=== PATIENT | female | born 1940 | race Caucasian/White ===

== ENCOUNTER 2019-01-01 10:56 | Emergency (ER) | payer MEDICARE, SELFPAY ==
[2019-01-01 10:59] VITALS: BP 181/92; PULSE 108; RESP 18; TEMP 37.2; O2SAT 98
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
== END 2019-01-01 12:14 | disposition home or self-care (01) ==
PROVIDERS: Emergency Provider Physician Assistant; PCP Internal Medicine
DX: S41.112A Laceration without foreign body of left upper arm, initial encounter (principal); S51.812A Laceration without foreign body of left forearm, initial encounter; S61.512A Laceration without foreign body of left wrist, initial encounter; Y04.2XXA Assault by strike against or bumped into by another person, initial encounter; Z63.6 Dependent relative needing care at home
CPT/HCPCS: 90471; 99284; 99283

== ENCOUNTER 2019-10-02 20:45 | Outpatient (REF) | payer MEDICARE, SELFPAY ==
[2019-10-02 20:13] LABS: HCT 42.7 % (36.0-46.0); HGB 14.7 g/dL (12.0-15.5); Mean Corp. HGB Concentration 34.4 g/dL (32.0-36.0); Mean Corpuscular Volume 90.1 fL (80-95); Mean Platelet Volume 10.7 fL (8.0-11.0); Platelet Count 229 x1000/uL (130-400); RBC 4.74 m/cumm (4.00-5.20); RBC Distribution Width 13.9 % (11.7-14.6); White Blood Cell Count 4.26 k/cumm (4.4-10.8)
[2019-10-02 20:29] LABS: Anion Gap 11.3 mmol/L (3-11); BUN 18 mg/dL (7-18); CO2 26.7 mmol/L (21.0-32.0); Calcium 9.3 mg/dL (8.5-10.1); Chloride 104 mmol/L (98-107); Glucose 93 mg/dL (74-106); Potassium 3.8 mmol/L (3.5-5.1); Sodium 142 mmol/L (136-145); TSH (W/Ref FT4) 0.64 uIU/mL (0.36-3.74)
== END 2019-10-02 21:05 ==
LOC: NCHCN 20:45
PROVIDERS: PCP Internal Medicine; Visit Provider Internal Medicine
DX: I10 Essential (primary) hypertension (principal); R00.0 Tachycardia, unspecified; H53.9 Unspecified visual disturbance
CPT/HCPCS: 80048; 85027; 84443

== ENCOUNTER 2019-11-26 07:10 | Emergency (ER) | payer MEDICARE, SELFPAY ==
[2019-11-26 07:15] VITALS: BP 158/81; PULSE 101; RESP 16; TEMP 37; O2SAT 97
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
--- NOTE | 2019-11-26 07:30 | DI.RAD_ITS ---
EXAM: XR FOOT RT COMPLETE CLINICAL HISTORY: trauma. TECHNIQUE: 2D digital imaging was performed. COMPARISON: No exams were available for comparison FINDINGS: BONES: No acute fracture is present. No bony destructive lesion is seen. JOINTS: No dislocation present. There is a hammertoe deformity of the 2nd toe which overlaps the 1st toe. There are mild degenerative changes. A small ossicle is seen adjacent to the medial aspect of the navicular. SOFT TISSUE: Normal. IMPRESSION: No acute abnormality. DATA REPOSITORY: RADIATION DOSE DELIVERED:
--- NOTE | 2019-11-26 07:30 | DI.RAD_ITS ---
EXAM: XR KNEE LT 3V AP,LAT,ANITA CLINICAL HISTORY: trauma. TECHNIQUE: 2D digital imaging was performed. COMPARISON: No exams were available for comparison FINDINGS: BONES: No acute fracture is present. No bony destructive lesion is seen. Bones appear osteopenic. JOINTS: The knee is normally aligned. No joint effusion is seen. The femoral tibial joint spaces are well maintained. There is narrowing of the patellofemoral joint and mild periarticular spurring. An ossicle is seen adjacent to the tibial tubercle. SOFT TISSUE: Normal. IMPRESSION: Mild degenerative changes greatest of the patellofemoral joint. No acute abnormality. DATA REPOSITORY: RADIATION DOSE DELIVERED:
--- NOTE | 2019-11-26 08:07 | DI.VRAD_ITS ---
PROCEDURE INFORMATION: Exam: XR Right Ankle Exam date and time: 11/26/2019 7:45 AM Age: 79 years old Clinical indication: Pain; Ankle and foot; Right TECHNIQUE: Imaging protocol: XR Right ankle. Views: 3 or more views. COMPARISON: No relevant prior studies available. FINDINGS: Bones/joints: medial and lateral malleoli are normal. ankle mortise is symmetrical. No fracture. hind foot is unremarkable. Tibiotalar joint and the subtalar joint appears normal. Small ossific density of approximately 8 mm by 2 mm dorsal aspect of the neck of the talus. Small avulsion injury within the differential diagnosis. Correlate regarding tenderness. Soft tissues: Moderate soft tissue swelling laterally. Moderate soft tissue swelling adjacent to the lateral malleolus. IMPRESSION: 1. No ankle fracture 2. Moderate soft tissue swelling adjacent to the lateral malleolus. 3. Small ossific density of approximately 8 mm by 2 mm dorsal aspect of the neck of the talus. Small avulsion injury within the differential diagnosis. Correlate regarding tenderness. Dictated and Authenticated by: Martín Robles MD. Ordering:SAJAN Giles MD
--- NOTE | 2019-11-26 08:09 | DI.VRAD_ITS ---
PROCEDURE INFORMATION: Exam: XR Right Foot Complete Exam date and time: 11/26/2019 7:47 AM Age: 79 years old Clinical indication: Injury or trauma; Fall; Initial encounter; Abrasion; Foot; Left; Injury date: 11/25/19 TECHNIQUE: Imaging protocol: XR Right foot. Views: 3 or more views. COMPARISON: No relevant prior studies available. FINDINGS: Bones/joints: Mild degenerative changes at the first metatarsal phalangeal joint. Mild medial subluxation of the proximal phalanx of the 2nd ray in relation to the metatarsal. Soft tissues: Normal. IMPRESSION: Mild medial subluxation of the proximal phalanx of the 2nd ray in relation to the metatarsal. Dictated and Authenticated by: Martín Robles MD. Ordering:SAJAN Giles MD
--- NOTE | 2019-11-26 08:10 | DI.VRAD_ITS ---
PROCEDURE INFORMATION: Exam: XR Left Knee Exam date and time: 11/26/2019 7:31 AM Age: 79 years old Clinical indication: Injury or trauma; Fall; Initial encounter; Abrasion; Knee; Left TECHNIQUE: Imaging protocol: XR Left knee. Views: 3 views. COMPARISON: No relevant prior studies available. FINDINGS: Bones/joints: Mild tricompartmental degenerative changes within the medial compartment, lateral compartment, and patellofemoral joint. No fracture. Tiny suprapatellar joint effusion. Soft tissues: Normal. IMPRESSION: 1. Mild tricompartmental degenerative joint disease. 2. Tiny suprapatellar joint effusion. Dictated and Authenticated by: Martín Robles MD. Ordering:SAJAN Giles MD
--- NOTE | 2019-11-26 09:37 | PT.INIE ---
Date of service: 11/26/19 Time of Service: 08:55 PT Notes Physical Therapy Inpatient Initial Evaluation Date: 11/26/2019 Referring Doctor: Chan Dickson MD PT Orders: PT CONSULT: Safety consult for DC Precautions: Fall. Standard. WBAT on BLE. Patient Profile/Admitting Diagnosis: Laura is a 79-year-old female who presented to the ED this morning with chief complaint of right ankle pain and left knee pain sustained from a fall while chasing a skunk of their garage. X-ray of the left knee showed a mild tricompartmental degenerative joint disease and a tiny suprapatellar joint effusion. X-ray of the right ankle and foot demonstrated mild medial subluxation of the proximal phalanx of the second ray in relation to the metatarsal, soft tissue swelling adjacent to the lateral met malleolus, and question of an avulsion injury of the talus. PMHX: Medical History HTN (hypertension) (Chronic) Surgical History No significant past surgical history (Acute) Social History/Home Situation: Patient lives with in a private home with 2 steps to enter without rails. is handicapped and lives with has been with 's caregiver for several months now. is independent with all aspects of ADLs without the need for an assistive ambulatory device nor adaptive equipment. She has not fallen in the past 12 months excluding this most recent accidental fall she had leading to this admission. Equipment Owned/DME: None Subjective: Patient reports pain on the left knee and of the right leg and foot of below 5/10. She is agreeable to a PT consult. She reports without having any flat foot wear on the left would give her more discomfort in her back because of the increased height from wearing the fracture boot on the right. She denies dizziness, lightheadedness, and chest pain throughout. Objective: General Observation: Patient lying down on ICU bed. Knee-high fracture boot on the right. Hinged knee brace on the left. Mental Status: Alert and oriented x4 Pain: 4/10 on the left knee and right foot ROM: Right Upper Extremity: Shoulder Flexion WFL. Shoulder abduction WFL. Elbow flexion WFL. Wrist flexion WFL. Opening and closing of hand WFL. Left Upper Extremity: Shoulder Flexion WFL. Shoulder abduction WFL. Elbow flexion WFL. Wrist flexion WFL. Opening and closing of hand WFL. Right Lower Extremity: Hip flexion WFL. Hip abduction WFL. Knee flexion WFL. Ankle dorsiflexion WFL. Ankle plantarflexion WFL. Left Lower Extremity: Hip flexion WFL. Hip abduction WFL. Knee flexion WFL. Ankle dorsiflexion WFL. Ankle plantarflexion WFL. Strength: Right Upper Extremity: Shoulder flexors 5/5. Shoulder abductors 5/5. Elbow flexors 5/5. Elbow extensors 5/5. [facility] Coord[facility] strong. Left Upper Extremity: Shoulder flexors 5/5. Shoulder abductors 5/5. Elbow flexors 5/5. Elbow extensors 5/5. Community Center Coordinator strong. Right Lower Extremity: Hip flexors 5/5. Hip abductors 5/5. Knee flexors 5/5. Knee extensors 5/5. Ankle dorsiflexors NT. Ankle plantarflexors NT. Left Lower Extremity:Hip flexors 5/5. Hip abductors 5/5. Knee flexors 5/5. Knee extensors 5/5. Ankle dorsiflexors 5/5. Ankle plantarflexors 5/5. Sensation: Intact as to pain and pressure on bilateral lower extremities. Bed Mobility/Transfers: Rolling independent Supine to sit independent Sit to supine independent Sit to stand supervision using BUE for support, minimal verbal cues provided for hand placement Stand to sit supervision using BUE for support, minimal verbal cues provided for hand placement Bed to chair supervision using BUE for support, minimal verbal cues provided for hand placement Chair to bed supervision using BUE for support, minimal verbal cues provided for hand placement Gait: Patient was able to tolerate 80 feet on level surface ambulation using the front wheeled walker with WBAT on BLE with out increase in pain complaint. Reciprocal swing through gait pattern observed. Leg length discrepancy seen because of increased height from use of fracture boot on the right. Balance: Static Sitting: Normal Dynamic Sitting: Normal Static Standing: Fair Dynamic Standing: Fair Special Tests: Mobility Limitations Standardized Measure [facility] 6 clicks Basic Mobility Inpatient Short Form: Raw Score: 22 CMS Score: 21% deficit Informed Consent/Education: Patient instructed in purpose of PT consult and plan of care. Assessment: Patient demonstrates need for an assistive ambulatory device to maximize independence with mobility ADL performance, discomfort in left knee and right ankle and foot, unsteadiness on feet, and impairment in balance resulting from admitting diagnoses. Laura is a 79-year-old female who presented to the ED this morning with chief complaint of right ankle pain and left knee pain sustained from a fall while chasing a skunk of their garage. X-ray of the left knee showed a mild tricompartmental degenerative joint disease and a tiny suprapatellar joint effusion. X-ray of the right ankle and foot demonstrated mild medial subluxation of the proximal phalanx of the second ray in relation to the metatarsal, soft tissue swelling adjacent to the lateral met malleolus, and question of an avulsion injury of the talus. Patient presents with clinical signs and symptoms consistent with current/admitting diagnoses that have resulted to mobility limitations, gait instability, generalized weakness, and impairment of motor control as demonstrated by the following impairment level findings: 1. Impaired standing balance 2. Impaired activity tolerance 3. Limitation of joint range of motion in right ankle due to pain Impairments are contributing to the following functional limitations: 3. Inability to safely ambulate without assistive device and physical assistance 4. Increase completion time for mobility ADL performance 5. Increased fall risk 6. Inability to negotiate steps alone safely Patient is assessed as a [id number] low complexity based on the following: History: 79-year-old female with impairment level findings, functional limitations, and past medical history as listed above Examination: Demonstrable impairment in strength, balance, and range of motion with underlying impairments and functional limitations as documented above Presentation: Stable Decision Makin low complexity Goals: N/A. PT consult only Plan of Care/Treatment Plan: N/A. PT consult only DISCHARGE RECOMMENDATIONS: Patient will benefit from the use of a front wheeled walker to maximize independence at home. To follow-up with orthopedic surgeon in 1 week per ED MD order. May benefit from outpatient physical therapy services as recommended by orthopedic surgeon after follow-up in order to regain prior level of independent mobility without an assistive device. TREATMENT CODE/TIME: 39111 x 25 minutes beginning at 8:55 AM. Thank you very much for this referral. Jyotsna Holley PT, DPT, CLT [facility] [place], [place]
== END 2019-11-26 09:50 | disposition home or self-care (01) ==
PROVIDERS: Emergency Provider Emergency Medicine; PCP Internal Medicine
DX: S99.821A Other specified injuries of right foot, initial encounter (principal); S99.811A Other specified injuries of right ankle, initial encounter; S89.82XA Other specified injuries of left lower leg, initial encounter; M25.462 Effusion, left knee; W10.8XXA Fall (on) (from) other stairs and steps, initial encounter; X50.9XXA Other and unspecified overexertion or strenuous movements or postures, initial encounter; I10 Essential (primary) hypertension
CPT/HCPCS: 29505; 29515; 73562; 97161; 99284; 73610; 73630; 99283; L1830; L4361

== ENCOUNTER → 2019-12-07 12:43 | Outpatient (BNVA) | payer MEDICARE, SELFPAY | PROVIDERS: PCP Internal Medicine; Referring Provider Emergency Medicine; Visit Provider Student in an Organized Health Care Education/Training Program | DX: M17.12 Unilateral primary osteoarthritis, left knee (principal); S99.911A Unspecified injury of right ankle, initial encounter; S89.92XA Unspecified injury of left lower leg, initial encounter; X50.9XXA Other and unspecified overexertion or strenuous movements or postures, initial encounter; I10 Essential (primary) hypertension | CPT/HCPCS: 99203; 99214 ==

== ENCOUNTER 2020-01-18 13:00 | Outpatient (CLI) | payer MEDICARE, SELFPAY ==
--- NOTE | 2020-01-18 12:00 | DI.US_ITS ---
EXAM: US LOWER EXTREMITY VENOUS RT CLINICAL HISTORY: Right leg swelling I82.401 ACUTE EMBOLISM AND THROMBOSIS TECHNIQUE: Right lower extremity venous ultrasound performed using grayscale, color-flow, and spectr al Doppler analysis. COMPARISON: No exams were available for comparison FINDINGS: The right common femoral, femoral and popliteal veins demonstrate normal compressibility, augmentatio n, and color Doppler. The posterior tibial veins are patent. The saphenofemoral junction is unremark able. There is no evidence of a Michelle cyst. The soft tissues are unremarkable. IMPRESSION: No DVT. DATA REPOSITORY:
== END 2020-01-18 13:20 ==
PROVIDERS: PCP Internal Medicine; Visit Provider Student in an Organized Health Care Education/Training Program
DX: R60.0 Localized edema (principal); I82.401 Acute embolism and thrombosis of unspecified deep veins of right lower extremity
CPT/HCPCS: 99213; 73610; 93971

== ENCOUNTER 2020-01-18 15:42 | Outpatient (CLI) | payer MEDICARE, SELFPAY ==
--- NOTE | 2020-01-18 11:30 | DI.RAD_ITS ---
EXAM: XR ANKLE RT COMPLETE CLINICAL HISTORY: right ankle pain. TECHNIQUE: 2D digital imaging was performed. COMPARISON: CR,XR XR ANKLE RT COMPLETE from 11/26/2019 FINDINGS: BONES: No acute fracture or dislocation is identified. The bones are mildly osteopenic. JOINTS: The ankle mortise is normally aligned. SOFT TISSUE: There is generalized soft tissue swelling of the hindfoot and ankle. No radiopaque fore ign body is identified. IMPRESSION: Soft tissue swelling about the right ankle. If there is concern for internal derangement, an MRI clemente uld be considered for further evaluation. DATA REPOSITORY: RADIATION DOSE DELIVERED:
== END 2020-01-18 16:02 ==
PROVIDERS: PCP Internal Medicine; Referring Provider Internal Medicine; Visit Provider Student in an Organized Health Care Education/Training Program
DX: M25.571 Pain in right ankle and joints of right foot (principal); R60.0 Localized edema; I10 Essential (primary) hypertension
CPT/HCPCS: 99213; 73610

== ENCOUNTER 2020-02-02 08:01 | Outpatient (CLI) | payer MEDICARE, SELFPAY ==
[2020-02-03 20:17] LABS: SARS-CoV-2 RNA Undetected (Undetected); SARS-CoV-2 Specimen Source Nasopharynx
== END 2020-02-02 08:21 ==
PROVIDERS: PCP Internal Medicine; Visit Provider Internal Medicine
DX: Z11.59 Encounter for screening for other viral diseases (principal)
CPT/HCPCS: U0003

== ENCOUNTER 2020-04-08 14:49 | Emergency (ER) | payer MEDICARE, SELFPAY ==
[2020-04-08 15:09] VITALS: BP 160/88; PULSE 88; RESP 16; TEMP 37; O2SAT 98
--- NOTE | 2020-04-08 15:17 | ED.GENADUL_ITS ---
Discharge Plan Disposition Patient Disposition: HOME Condition: Fair Discharge Details Clinical Impression: Knee sprain Primary Care Provider: Adarsh Monet ED Provider: Evette Cameron Home Meds and New Rx's Prescriptions: Continued diltiazem HCl 240 mg Capsule,Extended Release 24 Hr 240 mg PO DAILY RF: 0 Discharge Instructions Instructions: Knee Sprain (ED) Additional Instructions: hardeep wrap for comfort. Ice to affected area 20 minutes at a time 4-5 times daily Use walker for toe touch weight bear only as tolerated. acetaminophen 1000 mg 3 times daily for 5 days, then as needed for pain can add ibuprofen 600 mg with food 4 times daily for breakthrough pain. Referrals: ORTHOPAEDICS,[facility] [OTHER] - (one week if not improving) Discharge Data Discharge Date/Time-TO BE ENTERED AT DEPARTURE: 04/08/20 17:20 Medical Decision Making <ELBERT Martinez - Last Filed: 04/13/20 09:18> Patient is a pleasant 79 year old female presenting today with c/c of right knee pain after she slipped on her deck this AM and fell with the knee flexed under her. States that pain is maximal anteriorly. Has had to hop or use a walker for ambulation. Denies other injury at the time of the incident. She did not strike her head. Denies neck, back, abdominal pain. Pain does not radiate. No previous surgery or injury to the knee that she is aware of. On exam, she has a notable effusion which is limiting exam. ROM is reduced, particularly flexion. She has full extension. She has 2+ distal pulses, sensation is intact. No obvious deformity. I do not note laxity with varus/valgus stress testing. She is able to flex at ankle. Pain is over patella and laterally along joint line. Patient is elevating, icing. Will give ibuprofen, she has been taking tylenol. Plan for XR for evaluation of potential fracture. At the end of my shift, care transitioned to Evette Cameron with imaging pending. Also have asked her to reexamine once pain is more controlled to see if it is not as limited. <Evette Cameron NP - Last Filed: 04/08/20 17:28> X-ray of right knee shows large joint effusion without evident fracture multi- level knee degenerative changes. Right knee shows no obvious deformity. She does have effusion noted. Most pain is lateral aspect of the knee. No overt instability noted but exam is limited secondary to effusion and pain. We will be wrapped with Hardeep wrap she will be advised no weightbearing toe-touch as tolerated only for stability with her walker and follow-up with orthopedics in 1 week if symptoms not improving HPI <ELBERT Martinez - Last Filed: 04/13/20 09:18> General Mode of arrival: wheelchair . Date/Time Provider Initiated Documentation: 04/08/20 15:16 . Limitations to Documentation: no limitations . Information obtained by: patient, family and RN notes reviewed . History of Present Illness 79 year old F presents to the emergency department with the chief complaint of right knee pain, described as moderate, with intensity rated at 7. Quality is described as aching, and is localized to the pelvis, right and upper extremity. Patient reports no radiation. Patient started experiencing this hour(s) and it has been constant. Immobilization improves symptom(s), Movement worsens symptoms . Patient notes no other symptoms.. Patient did receive the following treatments prior to arrival, none Related Data Home Medications Medication Instructions Recorded Confirmed diltiazem HCl 240 mg PO DAILY 11/26/19 04/08/20 Allergies Allergy/AdvReac Type Severity Reaction Status Date / Time No Known Allergies Allergy Unverified 04/08/20 15:17 General Stated Complaint: Orthopedic CONCHA: 3 Review of Systems <ELBERT Martinez - Last Filed: 04/13/20 09:18> Constitutional Constitutional: Reports as per HPI, Denies chills, Denies fever(s), Denies headache(s) and Denies weakness ENT Ears, Nose, Mouth, and Throat: Denies headache(s) Cardiovascular Cardiovascular: Reports as per HPI Respiratory Respiratory: Reports as per HPI and Denies cough Musculoskeletal Musculoskeletal: Reports as per HPI and Denies tingling Integumentary/Breasts Skin/Breast: Reports as per HPI, Denies rash and Denies wounds Neurologic Neurologic: Reports as per HPI, Denies headache(s), Denies tingling, Denies paresthesias and Denies weakness PFS <ELBERT Martinez - Last Filed: 04/13/20 09:18> Medical History HTN (hypertension) Left knee DJD Surgical History No significant past surgical history Social History Smoking/Tobacco Use Status: Never Alcohol Intake: current Alcohol Intake frequency: 0-2 drinks per day Drug use: Never Substance use type: does not use Current gender identity: female Do you feel safe at home: Yes Do you feel safe in your relationship?: Yes Additional Social history: with dementia Exam <ELBERT Martinez - Last Filed: 04/13/20 09:18> Const General: cooperative, healthy appearing, comfortable, no acute distress, well developed and well groomed Nutritional Appearance: average body habitus and well nourished Orientation: alert and awake Resp Effort & Inspection: normal respiratory effort, able to speak in complete sentences and no respiratory distress Cardio Rate: regular rate Rhythm: regular rhythm Skin General skin exam: no rashes or lesions noted Lesions: no lesions Rashes: no rashes Trauma: no lacerations or abrasions Neuro General: patient alert and patient awake Cognition: normal cognition Speech: speech normal Gait: normal gait Motor: muscle tone normal throughout Sensory Exam: no sensory deficits noted Extrem Right lower extremity: normal capillary refill, hip/thigh Details: normal to inspection; no tenderness, knee Details: abnormal to inspection (moderate effusion, pain over the anterior patella) Details: other (tight, tender IT band); not erythematous and without a suprapatellar bulge, tenderness Location: of the patella Details: inferiorly, swelling and knee ligament exam normal; ROM abnormal (full extension, flexion to 30*), normal knee ligament exam, no ecchymosis and no crepitus and lower leg Details: normal to inspection; abnormal to inspection (moderate knee effusion, pain with ROM) Psych Appearance: grossly normal and well kempt Mental Status: mental status grossly normal Speech and Movement: speech and movement normal Course <ELBERT Martinez - Last Filed: 04/13/20 09:18> Vital Signs Vital signs: Vital Signs Temperature 37.0 C 04/08/20 15:09 Pulse 88 04/08/20 15:09 Respiratory Rate 16 04/08/20 15:09 Blood Pressure 160/88 H 04/08/20 15:09 Pulse Oximetry 98 04/08/20 15:09 Temperature 37.0 C 10/09/20 15:09 Temperature Source Temporal Artery Scan 04/08/20 15:09 Pulse 88 04/08/20 15:09 Respiratory Rate 16 04/08/20 15:09 Blood Pressure 160/88 H 04/08/20 15:09 Blood Pressure Position Sitting 04/08/20 15:09 Pulse Oximetry 98 04/08/20 15:09 Oxygen Delivery Method Room Air 04/08/20 15:09 Oxygen Flow Rate 0 04/08/20 15:09 Pain Level 7 04/08/20 15:09 Sign Out <ELBERT Martinez - Last Filed: 04/13/20 09:18> Sign Out Data: Sign Out Comment: Care transitioned to Evette Cameron NP with imaging and reexamination pending. Last updated by Annette Fuchs PA at 04/08/20 16:05
--- NOTE | 2020-04-08 15:45 | DI.RAD_ITS ---
EXAM: XR KNEE RT 4V AP,LAT,ANITA,PAT CLINICAL HISTORY: fall on right knee this AM, flexion injury. TECHNIQUE: 2D digital imaging was performed. COMPARISON: CR,XR XR KNEE LT 3V AP,LAT,ANITA from 11/26/2019 FINDINGS: BONES: There is a depressed lateral tibial plateau fracture. There is 2-3 mm of depression noted. N o bony destructive lesion is seen. JOINTS: The knee is normally aligned. There is a joint effusion present. Degenerative changes are se en in the knee with joint space narrowing and periarticular spurring present. Chondrocalcinosis is p resent. SOFT TISSUE: Normal. IMPRESSION: There is a mildly depressed lateral tibial plateau fracture. Findings were discussed with the emerge ncy department on 04/09/2020. DATA REPOSITORY: RADIATION DOSE DELIVERED:
[2020-04-08] MEDS: Ibuprofen 600 MG TAB PO (15:58)
--- NOTE | 2020-04-09 08:20 | W.ED.FU ---
Date of service: 04/09/20 Time of Service: 08:20 Follow Up Plan: Call made to patient spoke with her she reports that she has been icing her knee which is feeling better since yesterday. Discussed x-ray results of a probable tibial plateau fracture with her she verbalizes understanding. Discussed the importance of follow-up with orthopedics she reports she will call first thing Saturday.
--- NOTE | 2020-04-14 16:03 | DI.VRAD_ITS ---
PROCEDURE INFORMATION: Exam: XR Left Knee Exam date and time: 04/08/2020 4:19 PM Age: 79 years old Clinical indication: Other: Fall on RT knee this am, flexion injury TECHNIQUE: Imaging protocol: XR Left knee. Views: 4 or more views. COMPARISON: CR XR KNEE LT 3V AP,LAT,ANITA 11/26/2019 7:50 AM FINDINGS: Bones/joints: Large knee joint effusion. No fluid level or joint body. Lateral patella subluxation and prominent lateral patellofemoral degenerative spurring. Mediolateral femorotibial spurring, greater medially. No acute fracture. Soft tissues: Normal. IMPRESSION: 1. New large knee joint effusion without evident fracture. 2. Multilevel knee degenerative change. Dictated and Authenticated by: Martín Rios MD. Ordering:BRITTNI Bryant MD
== END 2020-04-08 17:20 | disposition home or self-care (01) ==
PROVIDERS: Emergency Provider Nurse Practitioner Acute Care; PCP Internal Medicine
DX: M25.461 Effusion, right knee (principal); S83.91XA Sprain of unspecified site of right knee, initial encounter; W19.XXXA Unspecified fall, initial encounter; I10 Essential (primary) hypertension
CPT/HCPCS: 99284; 73564; 99281

== ENCOUNTER 2020-05-06 09:41 | Outpatient (CLI) | payer MEDICARE, SELFPAY ==
--- NOTE | 2020-05-06 09:15 | DI.RAD_ITS ---
EXAM: XR KNEE RT 3V AP,LAT,ANITA CLINICAL HISTORY: follow up. TECHNIQUE: 2D digital imaging was performed. COMPARISON: CR,XR XR KNEE RT 4V AP,LAT,ANITA,PAT from 04/08/2020 FINDINGS: BONES: There has been no change in alignment of the depressed lateral tibial plateau fracture. No ne w fracture is identified. No bony destructive lesion is seen. The bones are osteopenic. JOINTS: Stable degenerative changes are seen in the knee. Chondrocalcinosis is present. A small tyler nt effusion persists. SOFT TISSUE: Normal. IMPRESSION: Stable lateral tibial plateau fracture. DATA REPOSITORY: RADIATION DOSE DELIVERED:
--- NOTE | 2020-05-06 09:30 | DI.RAD_ITS ---
EXAM: XR ANKLE RT COMPLETE CLINICAL HISTORY: fall. TECHNIQUE: 2D digital imaging was performed. COMPARISON: CR XR ANKLE RT COMPLETE from 01/18/2020 FINDINGS: BONES: No acute fracture is present. No bony destructive lesion is seen. The bones are osteopenic. JOINTS: The ankle mortise is normally aligned. SOFT TISSUE: Normal. IMPRESSION: No acute fracture or dislocation. DATA REPOSITORY: RADIATION DOSE DELIVERED:
== END 2020-05-06 10:01 ==
PROVIDERS: PCP Internal Medicine; Referring Provider Internal Medicine; Visit Provider Student in an Organized Health Care Education/Training Program
DX: S82.141A Displaced bicondylar fracture of right tibia, initial encounter for closed fracture (principal); M25.571 Pain in right ankle and joints of right foot; S93.401A Sprain of unspecified ligament of right ankle, initial encounter; W00.0XXA Fall on same level due to ice and snow, initial encounter; I10 Essential (primary) hypertension
CPT/HCPCS: 73562; 99213; 73610

== ENCOUNTER 2020-05-11 22:17 | Outpatient (REF) | payer MEDICARE, SELFPAY ==
[2020-05-11 22:22] LABS: Calculated LDL 117 mg/dL (<100); Cholesterol 251 mg/dL (<200); HDL Cholesterol 124 mg/dL (40-60); Triglyceride 50 mg/dL (<150)
== END 2020-05-11 22:37 ==
LOC: NCHCN 22:17
PROVIDERS: PCP Internal Medicine; Visit Provider Internal Medicine
DX: E78.5 Hyperlipidemia, unspecified (principal)
CPT/HCPCS: 80061

== ENCOUNTER 2020-06-03 11:43 | Outpatient (CLI) | payer MEDICARE, SELFPAY ==
--- NOTE | 2020-06-03 10:45 | DI.RAD_ITS ---
EXAM: XR KNEE RT 2V AP,LAT CLINICAL HISTORY: f/u fracture. TECHNIQUE: 2D digital imaging was performed. COMPARISON: CR XR KNEE RT 3V AP,LAT,ANITA from 05/06/2020 FINDINGS: The bones appear osteopenic. There has been continued healing at the lateral tibial plateau fracture . Fracture lines are no longer discretely seen. Severe narrowing of the patellofemoral joint is ag ain noted. No new abnormalities are seen. IMPRESSION: Continued healing of the lateral tibial plateau fracture. DATA REPOSITORY: RADIATION DOSE DELIVERED:
== END 2020-06-03 12:03 ==
PROVIDERS: PCP Internal Medicine; Referring Provider Internal Medicine; Visit Provider Student in an Organized Health Care Education/Training Program
DX: S82.141A Displaced bicondylar fracture of right tibia, initial encounter for closed fracture (principal); S93.401A Sprain of unspecified ligament of right ankle, initial encounter; W00.0XXA Fall on same level due to ice and snow, initial encounter
CPT/HCPCS: 99213; 73560

== ENCOUNTER → 2020-10-25 08:08 | Outpatient (BNVA) | payer MEDICARE, SELFPAY | PROVIDERS: PCP Internal Medicine; Referring Provider Internal Medicine; Visit Provider Psychiatry & Neurology Neurology | DX: M21.372 Foot drop, left foot (principal); Z87.81 Personal history of (healed) traumatic fracture | CPT/HCPCS: 95908; 99215 ==

== ENCOUNTER 2021-07-03 16:28 | Outpatient (REF) | payer MEDICARE, SELFPAY ==
[2021-07-05 14:20] LABS: COVID-19 RT-PCR UVMMC Result Negative (Negative)
== END 2021-07-03 16:29 | disposition home or self-care (01) ==
LOC: NCHCN 16:28
PROVIDERS: PCP Internal Medicine; Visit Provider Internal Medicine
DX: Z20.822 Contact with and (suspected) exposure to COVID-19 (principal)
CPT/HCPCS: U0003

== ENCOUNTER 2021-07-10 15:17 | Outpatient (REF) | payer MEDICARE, SELFPAY ==
[2021-07-11 16:57] LABS: COVID-19 RT-PCR UVMMC Result Negative (Negative)
== END 2021-07-10 15:18 | disposition home or self-care (01) ==
LOC: NCHCN 15:17
PROVIDERS: PCP Internal Medicine; Visit Provider Internal Medicine
DX: Z20.822 Contact with and (suspected) exposure to COVID-19 (principal)
CPT/HCPCS: U0003; U0005

== ENCOUNTER 2021-11-14 16:28 | Outpatient (REF) | payer MEDICARE, SELFPAY ==
[2021-11-14 16:54] LABS: Anion Gap 11.9 mmol/L (3-11); BUN 15 mg/dL (7-18); CO2 25.1 mmol/L (21.0-32.0); CREATININE 0.7 mg/dL (0.55-1.02); Calcium 9.2 mg/dL (8.5-10.1); Chloride 104 mmol/L (98-107); Glucose 125 mg/dL (74-106); Potassium 3.9 mmol/L (3.5-5.1); Sodium 141 mmol/L (136-145)
== END 2021-11-14 16:29 | disposition home or self-care (01) ==
LOC: NCHCN 16:28
PROVIDERS: PCP Internal Medicine; Visit Provider Internal Medicine
DX: I10 Essential (primary) hypertension (principal); R29.898 Other symptoms and signs involving the musculoskeletal system; F32.9 Major depressive disorder, single episode, unspecified; M21.372 Foot drop, left foot
CPT/HCPCS: 80048

== ENCOUNTER 2022-10-23 13:38 | Outpatient (REF) | payer MEDICARE, SELFPAY ==
[2022-10-23 15:11] LABS: Hemoglobin A1C 5.5 % (<5.7)
[2022-10-23 15:20] LABS: Anion Gap 11.7 mmol/L (3-11); BUN 10 mg/dL (7-18); CO2 27.3 mmol/L (21.0-32.0); CREATININE 0.6 mg/dL (0.55-1.02); Calcium 9.8 mg/dL (8.5-10.1); Chloride 101 mmol/L (98-107); Estimated GFR 90.12 (mL/min/1.73m2); Glucose 115 mg/dL (74-106); Potassium 4.2 mmol/L (3.5-5.1); Sodium 140 mmol/L (136-145)
== END 2022-10-23 13:39 | disposition home or self-care (01) ==
LOC: NCHCN 13:38
PROVIDERS: PCP Internal Medicine; Visit Provider Internal Medicine
DX: I10 Essential (primary) hypertension (principal); E78.5 Hyperlipidemia, unspecified; R29.898 Other symptoms and signs involving the musculoskeletal system; M21.372 Foot drop, left foot; R73.09 Other abnormal glucose
CPT/HCPCS: 80048; 83036

== ENCOUNTER 2023-01-04 00:43 | Outpatient (CLI) | payer MEDICARE, SELFPAY ==
--- NOTE | 2023-01-04 | DI.MRI_ITS ---
Exam(s) MR CERVICAL SPINE WO EXAM: MR CERVICAL SPINE WO CLINICAL HISTORY: RT HAND WEAKNESS R29.898 AND FOOT DROP, C SPINE STENOSIS TECHNIQUE: Multiplanar multisequence MRI of the cervical spine was performed without intravenous con trast. COMPARISON: No exams were available for comparison FINDINGS: BONES: Vertebral body heights are maintained. Alignment is normal. Bone marrow signal intensity is wi thin normal limits. CERVICAL CORD: Craniovertebral junction is unremarkable. The cervical cord is normal size and signal intensity. SOFT TISSUES: Unremarkable. C2-3: No disc herniation or bulge is identified. No evidence of neural foraminal narrowing. No signi ficant central canal stenosis C3-4: No disc herniation or bulge is identified. Facet degenerative changes. Bilateral neural prieto inal narrowing. No significant central canal stenosis C4-5: No disc herniation or bulge is identified. Facet degenerative changes bilateralneural foramina l narrowing. No significant central canal stenosis C5-6: No disc herniation or bulge is identified. No evidence of neural foraminal narrowing. No signif icant central canal stenosis C6-7: No disc herniation or bulge is identified. No evidence of neural foraminal narrowing. No signif icant central canal stenosis C7-T1: No disc herniation or bulge is identified. No evidence of neural foraminal narrowing. No signi ficant central canal stenosis IMPRESSION: Intervertebral discs are intact throughout. No central canal stenosis or disc herniation. Facet degenerative changes are present, greater in the upper cervical region, causing bilateral neura l foraminal narrowing at C3-4 and C4-5. DATA REPOSITORY:
== END 2023-01-04 01:03 ==
LOC: DI 00:44
PROVIDERS: PCP Internal Medicine; Visit Provider Internal Medicine
DX: R29.898 Other symptoms and signs involving the musculoskeletal system (principal); M48.02 Spinal stenosis, cervical region
CPT/HCPCS: 72141

== ENCOUNTER → 2023-01-16 08:28 | Outpatient (BNVA) | payer MEDICARE, SELFPAY | PROVIDERS: PCP Internal Medicine; Referring Provider Internal Medicine; Visit Provider Psychiatry & Neurology Neurology | DX: M21.371 Foot drop, right foot (principal); M21.372 Foot drop, left foot; R29.898 Other symptoms and signs involving the musculoskeletal system; I10 Essential (primary) hypertension | CPT/HCPCS: 99215 ==

== ENCOUNTER 2023-01-22 15:08 | Outpatient (REF) | payer MEDICARE, SELFPAY ==
[2023-01-22 14:44] LABS: ESR 8 mm/hr (0-30)
[2023-01-22 19:26] LABS: TSH (W/Ref FT4) 0.76 uIU/mL (0.36-3.74); Vitamin B12 159 pg/mL (193-986)
[2023-01-23 12:50] LABS: Albumin 63.9 % (55.8-66.1); Total Protein 7.8 g/dL (6.3-8.2)
[2023-01-29 17:22] LABS: IgG Asialo. GM1 Negative (Negative); IgG Disialo. GD1b Negative (Negative); IgG Monos. GM1 Negative (Negative); IgM Asialo. GM1 Negative (Negative); IgM Disialo. GD1b Negative (Negative); IgM Monos. GM1 Negative (Negative)
== END 2023-01-22 15:09 | disposition home or self-care (01) ==
LOC: NCHCN 15:08
PROVIDERS: PCP Internal Medicine; Visit Provider Internal Medicine
DX: M21.372 Foot drop, left foot; R29.898 Other symptoms and signs involving the musculoskeletal system; G62.9 Polyneuropathy, unspecified; I10 Essential (primary) hypertension
CPT/HCPCS: 85652; 82607; 83520; 84165; 84443

== ENCOUNTER → 2023-02-12 13:27 | Outpatient (BNVA) | payer MEDICARE, SELFPAY | PROVIDERS: PCP Internal Medicine; Referring Provider Internal Medicine; Visit Provider Psychiatry & Neurology Neurology | DX: M21.371 Foot drop, right foot (principal); M21.372 Foot drop, left foot; R29.898 Other symptoms and signs involving the musculoskeletal system | CPT/HCPCS: 95913; 99213 ==

== ENCOUNTER 2023-02-15 10:23 | Outpatient (REF) | payer MEDICARE, SELFPAY ==
[2023-02-15 16:57] LABS: Vitamin B12 498 pg/mL (193-986)
== END 2023-02-15 10:24 | disposition home or self-care (01) ==
LOC: NCHCN 10:23
PROVIDERS: PCP Internal Medicine; Visit Provider Internal Medicine
DX: E53.8 Deficiency of other specified B group vitamins (principal)
CPT/HCPCS: 82607

== ENCOUNTER 2023-03-15 01:04 | Outpatient (RCR) | payer MEDICARE, SELFPAY ==
[2023-03-11 09:50] VITALS: BP 129/74; PULSE 76; RESP 18; TEMP 36; O2SAT 97
[2023-03-11] MEDS: IMMUNE GLOBULIN 20 GM/200 ML BTL IVPB (09:54)
[2023-03-11] MEDS: Normal Saline Flush 10 ML SYR IVP (09:54)
[2023-03-11 10:10] VITALS: BP 127/78; PULSE 76; RESP 17; TEMP 36.7; O2SAT 97
[2023-03-11 10:25] VITALS: BP 121/71; PULSE 68; RESP 17; TEMP 36; O2SAT 98
[2023-03-11 10:55] VITALS: BP 127/79; PULSE 72; RESP 17; TEMP 36.5; O2SAT 98
[2023-03-11 11:25] VITALS: BP 129/75; PULSE 73; RESP 17; TEMP 36.8; O2SAT 100
[2023-03-11 11:50] VITALS: BP 128/75; PULSE 72; RESP 17; TEMP 36.6; O2SAT 99
[2023-03-12 10:00] VITALS: BP 126/74; PULSE 65; RESP 17; TEMP 36.3; O2SAT 98
[2023-03-12] MEDS: IMMUNE GLOBULIN 20 GM/200 ML BTL IVPB (10:06)
[2023-03-12] MEDS: Normal Saline Flush 10 ML SYR IVP (10:06)
[2023-03-12 10:25] VITALS: BP 131/81; PULSE 72; RESP 17; TEMP 36.3; O2SAT 98
[2023-03-12 10:40] VITALS: BP 121/71; PULSE 55; RESP 17; TEMP 36.3; O2SAT 99
[2023-03-12 11:10] VITALS: BP 125/78; PULSE 55; RESP 17; TEMP 36; O2SAT 99
[2023-03-12 11:29] LABS: CREATININE 0.6 mg/dL (0.55-1.02); Estimated GFR 90.12 (mL/min/1.73m2)
[2023-03-12 11:40] VITALS: BP 134/76; PULSE 55; RESP 17; TEMP 36; O2SAT 99
[2023-03-13 09:50] VITALS: BP 145/72; PULSE 70; RESP 18; TEMP 36; O2SAT 98
[2023-03-13] MEDS: IMMUNE GLOBULIN 20 GM/200 ML BTL IVPB (09:54)
[2023-03-13] MEDS: Normal Saline Flush 10 ML SYR IVP (09:56)
[2023-03-13 10:10] VITALS: BP 144/81; PULSE 71; RESP 17; TEMP 37; O2SAT 98
[2023-03-13 10:25] VITALS: BP 142/80; PULSE 67; RESP 17; TEMP 37.1; O2SAT 98
[2023-03-13 10:55] VITALS: BP 144/80; PULSE 62; RESP 17; TEMP 36.6; O2SAT 97
[2023-03-13 11:25] VITALS: BP 151/82; PULSE 65; RESP 17; TEMP 37; O2SAT 97
[2023-03-14 09:53] VITALS: BP 153/88; PULSE 67; RESP 18; TEMP 36.4; O2SAT 98
[2023-03-14] MEDS: IMMUNE GLOBULIN 20 GM/200 ML BTL IVPB (09:57)
[2023-03-14] MEDS: Normal Saline Flush 10 ML SYR IVP (09:58)
[2023-03-14 10:19] VITALS: BP 135/81; PULSE 71; RESP 17; TEMP 36.5; O2SAT 97
[2023-03-14 10:34] VITALS: BP 127/75; PULSE 64; RESP 17; TEMP 36.6; O2SAT 98
[2023-03-14 11:04] VITALS: BP 136/80; PULSE 69; TEMP 36.6; O2SAT 98
[2023-03-14 11:34] VITALS: BP 130/78; PULSE 68; RESP 17; TEMP 36.3; O2SAT 98
[2023-03-15] MEDS: IMMUNE GLOBULIN 20 GM/200 ML BTL IVPB (10:15)
[2023-03-15] MEDS: Normal Saline Flush 10 ML SYR IVP (10:15)
[2023-03-15 10:20] VITALS: BP 131/71; PULSE 62; RESP 17; TEMP 36.5; O2SAT 99
[2023-03-15 10:34] VITALS: BP 144/94; PULSE 72; TEMP 36.5; O2SAT 100
[2023-03-15 10:41] LABS: CREATININE 0.8 mg/dL (0.55-1.02); Estimated GFR 73.98 (mL/min/1.73m2)
[2023-03-15 10:52] VITALS: BP 128/75; PULSE 62; TEMP 36.6; O2SAT 97
[2023-03-15 11:22] VITALS: BP 137/73; PULSE 64; RESP 17; TEMP 36.6; O2SAT 98
[2023-03-15 11:47] VITALS: BP 131/77; PULSE 65; TEMP 36.4; O2SAT 98
== END 2023-03-30 23:59 | disposition home or self-care (01) ==
LOC: INF 01:04
PROVIDERS: PCP Internal Medicine; Visit Provider Psychiatry & Neurology Neurology
DX: G61.82 Multifocal motor neuropathy (principal)
CPT/HCPCS: 96365; 96366; 82565; J1459

== ENCOUNTER 2023-04-10 01:27 | Outpatient (RCR) | payer MEDICARE, SELFPAY ==
[2023-04-08 10:05] VITALS: BP 150/88; PULSE 78; RESP 18; TEMP 37.3; O2SAT 99
[2023-04-08] MEDS: IMMUNE GLOBULIN 10 GM/100 ML BTL IVPB (10:09)
[2023-04-08] MEDS: Normal Saline Flush 10 ML SYR IVP (10:09)
[2023-04-08 10:30] VITALS: BP 118/71; PULSE 70; RESP 16; TEMP 36.9; O2SAT 98
[2023-04-08 10:45] VITALS: BP 117/74; PULSE 71; RESP 16; TEMP 36.9; O2SAT 98
[2023-04-08 11:15] VITALS: PULSE 67; RESP 16; TEMP 36.9; O2SAT 97
[2023-04-08] MEDS: IMMUNE GLOBULIN 20 GM/200 ML BTL IVPB (11:16)
[2023-04-08 11:45] VITALS: BP 130/76; PULSE 64; RESP 17; TEMP 36.8; O2SAT 98
[2023-04-08 12:15] VITALS: BP 128/79; PULSE 63; RESP 16; TEMP 36.9; O2SAT 98
[2023-04-09] VITALS (7 sets, daily range): BP systolic 113–134; BP diastolic 67–79; PULSE 66–80; RESP 16; TEMP 36–36.7; O2SAT 96–98
[2023-04-09] MEDS: Normal Saline Flush 10 ML SYR IVP (10:08)
[2023-04-09] MEDS: IMMUNE GLOBULIN 5 GM/50 ML BTL IVPB (10:08)
[2023-04-09 10:28] LABS: CREATININE 0.7 mg/dL (0.55-1.02); Estimated GFR 86.83 (mL/min/1.73m2)
[2023-04-09] MEDS: IMMUNE GLOBULIN 10 GM/100 ML BTL IVPB (10:45)
[2023-04-09] MEDS: IMMUNE GLOBULIN 20 GM/200 ML BTL IVPB (11:36)
[2023-04-10] VITALS (7 sets, daily range): BP systolic 123–151; BP diastolic 69–87; PULSE 65–74; RESP 16–17; TEMP 36.4–36.6; O2SAT 95–99
[2023-04-10] MEDS: IMMUNE GLOBULIN 5 GM/50 ML BTL IVPB (09:57)
[2023-04-10] MEDS: Normal Saline Flush 10 ML SYR IVP (09:57)
[2023-04-10] MEDS: IMMUNE GLOBULIN 10 GM/100 ML BTL IVPB (10:30)
[2023-04-10] MEDS: IMMUNE GLOBULIN 20 GM/200 ML BTL IVPB (11:20)
== END 2023-04-30 23:59 | disposition home or self-care (01) ==
LOC: INF 01:27
PROVIDERS: PCP Internal Medicine; Visit Provider Psychiatry & Neurology Neurology
DX: G61.82 Multifocal motor neuropathy (principal)
CPT/HCPCS: 36415; 96365; 96366; 82565; J1459

== ENCOUNTER 2023-05-10 03:51 | Outpatient (RCR) | payer MEDICARE, SELFPAY ==
[2023-05-01 00:03] VITALS: BP 151/87; PULSE 70; RESP 16; TEMP 36.4
[2023-05-08 10:00] VITALS: BP 136/73; PULSE 84; RESP 17; TEMP 36.3; O2SAT 98
[2023-05-08] MEDS: IMMUNE GLOBULIN 10 GM/100 ML BTL IVPB (10:00)
[2023-05-08] MEDS: Normal Saline Flush 10 ML SYR IVP (10:00)
[2023-05-08 10:20] VITALS: BP 114/66; PULSE 69; RESP 17; TEMP 36.3; O2SAT 97
[2023-05-08 10:35] VITALS: PULSE 69; RESP 16; TEMP 36.2; O2SAT 98
[2023-05-08 11:05] VITALS: BP 127/75; PULSE 63; RESP 17; TEMP 36.3; O2SAT 99
[2023-05-08] MEDS: IMMUNE GLOBULIN 20 GM/200 ML BTL IVPB (11:09)
[2023-05-08 11:35] VITALS: BP 127/76; PULSE 62; RESP 16; TEMP 35.4; O2SAT 98
[2023-05-08 12:05] VITALS: BP 129/67; PULSE 68; RESP 16; TEMP 36.2; O2SAT 99
[2023-05-09 09:40] VITALS: BP 143/75; PULSE 82; RESP 17; TEMP 36; O2SAT 98
[2023-05-09] MEDS: IMMUNE GLOBULIN 5 GM/50 ML BTL IVPB (09:44)
[2023-05-09] MEDS: Normal Saline Flush 10 ML SYR IVP (09:45)
[2023-05-09 10:00] VITALS: BP 133/78; PULSE 80; RESP 16; TEMP 37.3; O2SAT 96
[2023-05-09 10:15] VITALS: BP 122/75; PULSE 77; RESP 16; TEMP 37; O2SAT 96
[2023-05-09] MEDS: IMMUNE GLOBULIN 10 GM/100 ML BTL IVPB (10:19)
[2023-05-09 10:23] LABS: CREATININE 0.8 mg/dL (0.55-1.02); Estimated GFR 73.98 (mL/min/1.73m2)
[2023-05-09 10:45] VITALS: BP 135/75; PULSE 67; RESP 16; TEMP 37; O2SAT 98
[2023-05-09] MEDS: IMMUNE GLOBULIN 20 GM/200 ML BTL IVPB (11:04)
[2023-05-09 11:15] VITALS: BP 132/78; PULSE 59; RESP 16; TEMP 37; O2SAT 96
[2023-05-09 11:45] VITALS: BP 138/81; PULSE 65; RESP 16; TEMP 36.9; O2SAT 99
[2023-05-10] VITALS (7 sets, daily range): BP systolic 112–151; BP diastolic 70–82; PULSE 58–80; RESP 16–17; TEMP 36.3–36.6; O2SAT 97–99
[2023-05-10] MEDS: IMMUNE GLOBULIN 5 GM/50 ML BTL IVPB (09:50)
[2023-05-10] MEDS: Normal Saline Flush 10 ML SYR IVP (09:54)
[2023-05-10] MEDS: IMMUNE GLOBULIN 10 GM/100 ML BTL IVPB (10:29)
[2023-05-10] MEDS: IMMUNE GLOBULIN 20 GM/200 ML BTL IVPB (11:16)
== END 2023-05-30 23:59 | disposition home or self-care (01) ==
LOC: INF 03:51
PROVIDERS: PCP Internal Medicine; Visit Provider Psychiatry & Neurology Neurology
DX: G61.82 Multifocal motor neuropathy (principal)
CPT/HCPCS: 36415; 96365; 96366; 82565; J1459

== ENCOUNTER → 2023-05-14 10:38 | Outpatient (BNVA) | payer MEDICARE, SELFPAY | PROVIDERS: PCP Internal Medicine; Referring Provider Internal Medicine; Visit Provider Psychiatry & Neurology Neurology | DX: M21.372 Foot drop, left foot (principal); M21.371 Foot drop, right foot; R29.898 Other symptoms and signs involving the musculoskeletal system; I10 Essential (primary) hypertension | CPT/HCPCS: 99214 ==

== ENCOUNTER → 2023-08-13 10:27 | Outpatient (BNVA) | payer MEDICARE, SELFPAY | PROVIDERS: PCP Internal Medicine; Referring Provider Internal Medicine; Visit Provider Psychiatry & Neurology Neurology | DX: M21.372 Foot drop, left foot (principal); M21.371 Foot drop, right foot; R29.898 Other symptoms and signs involving the musculoskeletal system | CPT/HCPCS: 99214 ==

== ENCOUNTER → 2024-02-11 10:30 | Outpatient (BNVA) | payer MEDICARE, SELFPAY | PROVIDERS: PCP Family Medicine; Visit Provider Psychiatry & Neurology Neurology | DX: M21.371 Foot drop, right foot (principal); M21.372 Foot drop, left foot; R29.898 Other symptoms and signs involving the musculoskeletal system; G62.89 Other specified polyneuropathies; M65.321 Trigger finger, right index finger | CPT/HCPCS: 99214 ==

== ENCOUNTER 2024-07-08 13:10 | Outpatient (REF) | payer MEDICARE, SELFPAY ==
[2024-07-08 21:37] LABS: ALT 39 U/L (14-59); AST 33 U/L (15-37); Albumin 4.8 g/dL (3.4-5.0); Alkaline Phosphatase 87 U/L (46-116); BUN 25 mg/dL (7-18); Bilirubin, Total 1.24 mg/dL (0.2-1.0); CREATININE 0.8 mg/dL (0.55-1.02); Calcium 11.1 mg/dL (8.5-10.1); Chloride 103 mmol/L (98-107); Estimated GFR 73.52 (mL/min/1.73m2); Glucose 129 mg/dL (74-106); Potassium 4.7 mmol/L (3.5-5.1); Sodium 143 mmol/L (136-145); Total Protein 8.1 g/dL (6.4-8.2)
[2024-07-08 22:16] LABS: Vitamin D 25 Total 13.1 ng/mL (30-100)
== END 2024-07-08 13:11 | disposition home or self-care (01) ==
LOC: NCHCN 13:10
PROVIDERS: PCP Family Medicine; Visit Provider Family Medicine
DX: I10 Essential (primary) hypertension (principal)
CPT/HCPCS: 80053; 82306

== ENCOUNTER 2024-11-17 16:28 | Outpatient (REF) | payer MEDICARE, SELFPAY ==
[2024-11-17 22:51] LABS: ALT 28 U/L (14-59); AST 23 U/L (15-37); Albumin 4.6 g/dL (3.4-5.0); Alkaline Phosphatase 73 U/L (46-116); Anion Gap 9.6 mmol/L (3-11); BUN 20 mg/dL (7-18); Bilirubin, Total 1.6 mg/dL (0.2-1.0); CO2 27.4 mmol/L (21.0-32.0); CREATININE 0.6 mg/dL (0.55-1.02); Calcium 10.2 mg/dL (8.5-10.1); Chloride 103 mmol/L (98-107); Estimated GFR 89.01 (mL/min/1.73m2); Glucose 99 mg/dL (74-106); Sodium 140 mmol/L (136-145); Total Protein 7.8 g/dL (6.4-8.2); Vitamin D 25 Total 31 ng/mL (30-100)
== END 2024-11-17 16:29 | disposition home or self-care (01) ==
LOC: NCHCN 16:28
PROVIDERS: PCP Family Medicine; Visit Provider Family Medicine
DX: E83.52 Hypercalcemia
CPT/HCPCS: 80053; 82306

== ENCOUNTER → 2025-02-09 10:39 | Outpatient (BNVA) | payer MEDICARE, SELFPAY | PROVIDERS: PCP Family Medicine; Referring Provider Family Medicine; Visit Provider Psychiatry & Neurology Neurology | DX: M21.372 Foot drop, left foot (principal); M21.371 Foot drop, right foot; R29.898 Other symptoms and signs involving the musculoskeletal system; G62.89 Other specified polyneuropathies; M65.30 Trigger finger, unspecified finger | CPT/HCPCS: 99214 ==

== ENCOUNTER 2025-02-23 03:04 | Outpatient (CLI) | payer MEDICARE, SELFPAY ==
[2025-02-23 10:21] LABS: ALT 24 U/L (14-59); AST 32 U/L (15-37); Albumin 4.0 g/dL (3.4-5.0); Alkaline Phosphatase 73 U/L (46-116); Anion Gap 13.8 mmol/L (3-11); BUN 11 mg/dL (7-18); Bilirubin, Total 1.1 mg/dL (0.2-1.0); CO2 24.2 mmol/L (21.0-32.0); Calcium 10.2 mg/dL (8.5-10.1); Chloride 97 mmol/L (98-107); Estimated GFR 89.01 (mL/min/1.73m2); Glucose 127 mg/dL (74-106); Lipase 53 U/L (<78); Potassium 4.7 mmol/L (3.5-5.1); Sodium 135 mmol/L (136-145); Total Protein 8.4 g/dL (6.4-8.2)
== END 2025-02-23 03:05 | disposition home or self-care (01) ==
LOC: LBO 03:05
PROVIDERS: PCP Family Medicine; Visit Provider Family Medicine
DX: R17 Unspecified jaundice (principal)
CPT/HCPCS: 36415; 80053; 83690

== ENCOUNTER 2025-03-03 15:00 | Outpatient (CLI) | payer MEDICARE, SELFPAY ==
[2025-03-03 10:10] LABS: Glucose Negative (Negative)
[2025-03-03 10:21] LABS: WBC 0-2 HPF (0-5)
[2025-03-03 10:22] LABS: C & S Indicated? No
[2025-03-03 10:28] LABS: Bilirubin, Direct 0.2 mg/dL (0.0-0.2); Bilirubin, Total 1.0 mg/dL (0.2-1.0)
[2025-03-03 16:57] LABS: Total Protein 7.8 g/dL (6.3-8.2)
[2025-03-04 10:15] LABS: Kappa Free Light Chain 1.67 mg/dL (0.33-1.94); Lambda Free Light Chain 1.84 mg/dL (0.57-2.63)
[2025-03-04 12:42] LABS: Albumin 56.9 % (55.8-66.1); Albumin g/dL 4.4 g/dL (3.6-5.2); Alpha 1 g/dL 0.50 g/dL (0.15-0.40); Alpha 2 g/dL 1.00 g/dL (0.50-1.00); Beta g/dL 1.00 g/dL (0.60-1.20); Gamma g/dL 0.90 g/dL (0.60-1.60)
== END 2025-03-03 15:01 | disposition home or self-care (01) ==
LOC: LBO 15:00
PROVIDERS: PCP Family Medicine; Visit Provider Family Medicine
DX: E80.6 Other disorders of bilirubin metabolism (principal); E83.52 Hypercalcemia; E87.1 Hypo-osmolality and hyponatremia
CPT/HCPCS: 36415; 82248; 81003; 81015; 82247; 82397; 83883; 83970; 84165

== ENCOUNTER 2025-03-24 04:06 | Outpatient (CLI) | payer MEDICARE, SELFPAY ==
[2025-03-24 11:23] LABS: ALT 24 U/L (14-59); AST 19 U/L (15-37); Albumin 4.4 g/dL (3.4-5.0); Alkaline Phosphatase 60 U/L (46-116); Anion Gap 11.8 mmol/L (3-11); BUN 9 mg/dL (7-18); Bilirubin, Total 1.5 mg/dL (0.2-1.0); CO2 28.2 mmol/L (21.0-32.0); Calcium 10.1 mg/dL (8.5-10.1); Chloride 101 mmol/L (98-107); Estimated GFR 73.06 (mL/min/1.73m2); Glucose 140 mg/dL (74-106); Potassium 4.0 mmol/L (3.5-5.1); Sodium 141 mmol/L (136-145); Total Protein 8.1 g/dL (6.4-8.2)
[2025-03-25 20:01] LABS: Myeloperoxidase Ab IgG <0.2 U (>=0.4)
== END 2025-03-24 04:07 | disposition home or self-care (01) ==
LOC: LBO 04:06
PROVIDERS: PCP Family Medicine; Visit Provider Psychiatry & Neurology Neurology
DX: R17 Unspecified jaundice (principal); E83.52 Hypercalcemia; R53.1 Weakness
CPT/HCPCS: 36415; 80053; 83690; 83516; 83970

== ENCOUNTER → 2025-05-04 00:47 | Outpatient (CLI) | payer MEDICARE, SELFPAY ==
--- NOTE | 2025-05-04 | DI.US_ITS ---
Exam(s) US ABDOMEN EXAM: US ABDOMEN CLINICAL HISTORY: ELEVATED BILIRUBIN, UNSPECIFIED JAUNDICE R17 TECHNIQUE: Ultrasound abdomen performed using standard protocol. COMPARISON: No exams were available for comparison FINDINGS: ABDOMINAL AORTA AND IVC: Visualized portions normal caliber. Atherosclerotic calcification is present. PANCREAS: Normal where visualized. LIVER: Normal. Hepatopetal flow in the Portal Vein. There is a 7 mm simple cyst in the dome of the liver. There is a 1.2 x 1.5 x 1.1 cm echogenic mass in the caudate lobe. There is a 0.8 x 0.9 x 1.0 cm echogenic round mass in the right lobe of the liver. There is a smaller 0.5 x 0.4 x 0.5 cm echogenic mass in the right lobe of the liver. The liver measures 15cm long. There is a complex cystic mass in the right lobe of the liver measuring 2.5 cm. GALLBLADDER:Cholelithiasis. No evidence of wall thickening. No pericholecystic fluid identified. BILIARY SYSTEM: Common bile duct measures < 7 mm. No intrahepatic biliary ductal dilation. THAO'S SIGN: Negative. KIDNEYS: Kidneys are symmetric in size. There is a 1 cm echogenic focus in the inferior left kidney consistent with a nonobstructing stone. No evidence of hydronephrosis. There are bilateral simple renal cysts. No follow-up is recommended. SPLEEN: Not enlarged. ASCITES: None seen. IMPRESSION: 1. Several echogenic solid masses in the liver. The largest is in the caudate lobe. Sonographically, hemangiomas would have this appearance. A nonemergent MRI of the abdomen without and with contrast is recommended for further characterization. 2. Complex septated cyst in the right lobe of the liver measuring 2.5 cm. 3. Cholelithiasis. There is no sonographic evidence to suggest acute cholecystitis. 4. Bilateral simple renal cysts. No follow-up is recommended. Unexpected findings DATA REPOSITORY:
== END ==
PROVIDERS: PCP Family Medicine; Visit Provider Family Medicine
DX: K76.89 Other specified diseases of liver (principal); K80.80 Other cholelithiasis without obstruction
CPT/HCPCS: 76700

== ENCOUNTER 2025-05-25 14:19 | Inpatient (IN) | payer MEDICARE, SELFPAY ==
[2025-05-25] VITALS (38 sets, daily range): BP systolic 93–158; BP diastolic 39–125; PULSE 68–180; RESP 13–27; TEMP 36.6–36.7; O2SAT 90–98
--- NOTE | 2025-05-25 14:15 | RT.EKG_ITS ---
APPROVED REPORT Exam: Resting ECG Reason for Exam: chest tightness Patient Location: E HR:139 bpm ECG Measurements Heart Rate 139 AXIS CO 122 P 0 QRSd 128 QRS 28 QT 308 T 219 QTc 469 Conclusion Wide-QRS tachycardia...V-rate>(220-age), QRSd>120 Nonspecific intraventricular conduction delay...QRSd >115mS, not LBBB/RBBB ?afib
--- NOTE | 2025-05-25 14:58 | W.ED.GENAD ---
Discharge Plan Disposition Patient Disposition: Admit to [facility] Condition: Serious Discharge Details Clinical Impression: Atrial fibrillation with RVR, Chest pain, Elevated LFTs Primary Care Provider: Juhi Garcia ED Provider: Moses Simon Home Meds and New Rx's Prescriptions: No Action alendronate 70 mg tablet 70 mg PO QWEEK cholecalciferol (vitamin D3) 50 mcg (2,000 unit) capsule 50 mcg PO DAILY diltiazem HCl 240 mg capsule,extended release 24hr 240 mg PO DAILY HPI General Mode of arrival: ambulatory. Date/Time Provider Initiated Documentation: 05/25/25 14:21. Limitations to Documentation: no limitations. Information obtained by: patient. History of Present Illness 84 year old F presents to the emergency department with the chief complaint of feels heart is beating irregularly , described as moderate, Patient started experiencing this day(s) (4) and it has been constant. No relieving factors improve symptom(s), No exacerbating factors reported . Patient notes chest pain and shortness of breath; denies fever/chills and syncope. Patient did receive the following treatments prior to arrival, none Related Data Home Medications ?Medication ?Instructions ?Recorded ?Confirmed alendronate 70 mg tablet 70 mg PO QWEEK 02/09/25 05/25/25 cholecalciferol (vitamin D3) 50 50 mcg PO DAILY 02/09/25 05/25/25 mcg (2,000 unit) capsule diltiazem HCl 240 mg 240 mg PO DAILY 05/25/25 05/25/25 capsule,extended release 24 hr Allergies Allergy/AdvReac Type Severity Reaction Status Date / Time No Known Allergies Allergy Unverified 05/25/25 14:38 General Stated Complaint: Palpitatns CONCHA: 3 Review of Systems All systems reviewed & are unremarkable except as noted in HPI and below Constitutional Constitutional: Denies chills, Denies fever(s) and Denies weakness Cardiovascular Cardiovascular: Reports chest pain, Reports palpitations and Reports dyspnea Respiratory Respiratory: Denies cough and Reports dyspnea Gastrointestinal Gastrointestinal: Denies abdominal pain, Denies nausea and Denies vomiting Neurologic Neurologic: Denies weakness Endocrine Endocrine: Reports palpitations Exam Const General: no acute distress Orientation: alert HENMT Head: normal to inspection Ears: external ears normal General nose exam: external nose normal Mouth: moist mucous membranes Eyes General: appearance normal, both eyes and all related structures Neck Neck: normal visual inspection Resp Effort & Inspection: normal respiratory effort and able to speak in complete sentences Auscultation: clear to auscultation bilaterally Cardio Jugular venous pressure: no JVD Rate: tachycardic Rhythm: abnormal rhythm Heart Sounds: no murmurs Skin General skin exam: no rashes or lesions noted Neuro General: patient alert and patient oriented x3 Extrem General: normal to inspection Psych Mental Status: mental status grossly normal Course Vital Signs Vital signs: Vital Signs Temperature 36.7 C 05/25/25 14:25 Pulse 139 H 05/25/25 14:25 Respiratory Rate 22 05/25/25 14:25 Blood Pressure 158/97 H 05/25/25 14:25 Pulse Oximetry 98 05/25/25 14:25 Temperature 36.7 C 05/25/25 14:25 Temperature Source Oral 05/25/25 14:25 Pulse 139 H 05/25/25 14:25 Respiratory Rate 22 05/25/25 14:25 Blood Pressure 158/97 H 05/25/25 14:25 Pulse Oximetry 98 05/25/25 14:25 Oxygen Delivery Method Room Air 05/25/25 14:25 Oxygen Flow Rate 0 05/25/25 14:25 Pain Level 0 05/25/25 14:25 Medical Decision Making 84-year-old female with no known prior cardiac history comes in with 4 days of feeling like her heart is beating irregularly and fast, intermittent chest tightness and shortness of breath with exertion. Denies any high fevers, cough, abdominal pain. When sitting on the stretcher she says she is feeling well other than she feels her heart is beating irregularly. EKG shows what I suspect is A-fib left bundle branch block PVCs intermixed. No STEMI. No JVD, no abdominal tenderness, no leg swelling or calf tenderness. Given tachycardia and her chest pain will check CT PE proBNP orders and a CTA of the chest to evaluate for PE. She has equal peripheral pulses so I do not dissection and she has no tearing back pain. She is already on diltiazem for high blood pressure and hasn't missed any doses, will try iv metoprolol Labs unremarkable other than pro bnp over 5000 and mild elevation of LFTs, will include a CT abdomen pelvis to evaluate for possible recurrent gallbladder abnormalities. She had no significant changes with 2 doses of 5 mg IV metoprolol so was given 20 mg of IV diltiazem with rates up to 90 in the low 100s in A-fib. Will start diltiazem drip as well. Patient stable and still appears well. CTA shows no acute findings, does have lesions in the liver that are likely hemangiomas. Discussed these results with her and she states she is already aware of these and is scheduled to have an outpatient MRI of her liver in a few weeks. Will discuss with hospitalist about admission for A-fib with RVR Differential Diagnosis Differential Diagnosis: afib, ACS, PE ECG Data Attestation: I personally reviewed and interpreted this ECG (s) as follows: Prior ECG tracings: not available for review Interpretation: ?afib, rate 139 no stemi Second EKG shows A-fib, rate of 100, no STEMI Critical Care Time Critical Care Time Critical Care Time: Yes Total Critical Care Time: 60 (minutes) Attestation: Time spent on lab review, hemodynamic monitoring and frequent reassessments in a patient requiring IV david blockers for atrial fibrillation with rapid ventricular response with the potential to deteriorate at any time. PFSH All Active Problems (Updated 05/25/25 @ 19:38 by Moses Simon MD) Elevated LFTs (Acute) Chest pain (Acute) Atrial fibrillation with RVR (Acute) Paroxysmal atrial fibrillation with RVR (Acute) Diffuse axonal neuropathy (Acute) Foot drop, left (Acute) Weakness of both hands (Acute) Right foot drop (Acute) Nail dystrophy (Acute) Pain, foot (Acute) Corns and callosities (Acute) Mild sprain of right ankle (Acute) Tibial plateau fracture, right (Acute) Deep vein thrombosis (DVT) of right lower extremity (Acute) Ankle pain, right (Acute) Left knee DJD (Acute) HTN (hypertension) (Chronic) Medical History Nevus Actinic keratosis Seborrheic keratosis Roe angioma Multiple benign nevi Intermittent palpitations Reactive depression (situational) Hyperlipidemia Abnormal cardiovascular stress test Vision changes Sinus tachycardia Caregiver role strain Surgical History No significant past surgical history Family History Father Heart disease Social History Smoking/Tobacco Use Status: Never Smoking risk assessment performed?: Yes Alcohol Intake: current Alcohol Intake frequency: 0-2 drinks per day Alcohol type: wine and other Drug use: Never Substance use type: does not use Household members: none Housing: house Number of Children: 3 number of grandchildren: 5 current occupation: Retired Current gender identity: female What is your relationship status?: Panel score (0-1 are the most socially isolated patients): 1 What type of physical activity do you participate in: walking Seatbelt use: always Do you feel safe at home: Yes Do you feel safe in your relationship?: Yes Additional Social history: with dementia PAWSS Have you Been Recently Intoxicated or Drunk Within the Last 30 days?: No Have you Ever Experienced Previous Episodes of Alcohol Withdrawal?: No Have you ever Experienced Withdrawal Seizures?: No Have you ever Experienced Delirium Tremens(DT)s?: No Have you ever undergone Alcohol Rehabilitation Treatment (i.e, inpt ot outpatient treatment programs)?: No Have you ever Experienced Blackouts?: No Have you ever Combined Alcohol with other Downers within the last 90 days?: No Have you ever Combined Alcohol with any other Substance of Abuse during the last 90 days?: No Positive Blood Alcohol level on Presentation? [PCS.BAL]: No Evidence of Increased Autonomic Activity (i.e. HR>120, tremor, sweating, agitation, nausea)?: No Result: 0
[2025-05-25] MEDS: Metoprolol 5 MG/5 ML VIAL IVP ×2 (15:24→15:50)
[2025-05-25 15:25] LABS: Abs Immature Grans 0.02 10^3/uL (0.0-0.06); HCT 39.7 % (36.0-46.0); HGB 13.7 g/dL (11.2-15.7); Immature Grans % 0.3 %; MCH 30.3 pg (27.0-33.0); MCHC 34.5 % (32.0-36.0); MCV 88 fL (80-95); RBC 4.52 10^6/uL (3.93-5.22); RDW 13.6 % (11.7-14.6); RDW-SD 43.8 fL; WBC 6.01 10^3/uL (4.4-10.8)
[2025-05-25] MEDS: Normal Saline 1,000 ML 1000 ML IV (15:25)
--- NOTE | 2025-05-25 15:30 | RT.EKG_ITS ---
APPROVED REPORT Exam: Resting ECG Reason for Exam: tachycardia Patient Location: E HR:100 bpm ECG Measurements Heart Rate 100 AXIS SC [id number] P [id number] QRSd 136 QRS 38 QT 392 T 47 QTc 505 Conclusion Atrial fibrillation...V-rate 66-144, irreg A-activity Probable left ventricular hypertrophy...(RaVL+SV3)xQRSd >300 Nonspecific T abnormalities, lateral leads...T <-0.10mV, I aVL V5 V6
[2025-05-25 15:38] LABS: Magnesium 1.6 mg/dL (1.6-2.6)
[2025-05-25 15:40] LABS: ALT 59 U/L (10-49); AST 130 U/L (<34); Albumin 4.6 g/dL (3.2-5.0); Alkaline Phosphatase 79 U/L (46-116); Anion Gap 10.1 mmol/L (3-11); BUN 19 mg/dL (9-23); Bilirubin, Total 1.30 mg/dL (0.2-1.2); CO2 22.9 mmol/L (20.0-31.0); Calcium 9.8 mg/dL (8.3-10.6); Chloride 108 mmol/L (98-107); Glucose 128 mg/dL (74-106); Potassium 3.7 mmol/L (3.5-5.1); Sodium 141 mmol/L (136-145); Total Protein 7.4 g/dL (5.7-8.2); Troponin I 24 ng/L (<35)
[2025-05-25 15:43] LABS: TSH (W/Ref FT4) 1.16 uIU/mL (0.55-4.78)
[2025-05-25 15:44] LABS: RBC Morphology Normal
--- NOTE | 2025-05-25 15:44 | DI.CT_ITS ---
Exam(s) CT CHEST PE ABD PELVIS W EXAM: CT CHEST PE ABD PELVIS W CLINICAL HISTORY: chest pain, tachycardia, elevated lft's. TECHNIQUE: Imaging Protocol: Axial computed tomography images with coronal and sagittal reformatted images were created and reviewed. Computer aided detection (CAD) was utilized. CONTRAST MATERIAL: Intravenous: Omnipaque 350 Contrast volume:75 ml Oral: no COMPARISON: US US ABDOMEN from 05/04/2025 FINDINGS: CHEST: Pulmonary parenchyma: Mild respiratory motion and dependent changes. No consolidation. No dominant measurable mass. Tracheobronchial tree: No bronchiectasis. No mucous plugging.No bronchial wall thickening. Pleura: No effusion or pneumothorax. Mediastinum: Within normal limits. Pulmonary arteries: No visible emboli. Cardiovascular: The left atrium and left ventricle are quite enlarged. There is also right atrial dilatation. No pericardial effusion. Thoracic aorta non- dilated. Bones: Unremarkable for age. No lytic or blastic lesions. No compression fractures. Soft tissues: Unremarkable. ABDOMEN and PELVIS: Liver: The liver parenchyma not completely opacified. The hepatic veins are not yet opacified. The evaluation of liver lesions is limited. There are a few cysts. There are also some enhancing lesions. There is a cystic appearing lesion in the right lobe near the dome of the liver. Please see previous ultrasound report. Normal size and attenuation. Gallbladder and biliary tract: There are multiple small calcified stones in the dependent portion of the gallbladder. No evidence of wall thickening. No biliary dilatation. Pancreas: Normal density, no abnormal calcifications or inflammatory process. Spleen: Normal. Kidneys: Normal size, contour and axis. There is a 9 millimeter stone at the upper pole of the left kidney. There is a simple cyst of the upper pole of the right kidney. No follow-up is recommended. No obstructive uropathy. No suspicious masses seen. Adrenal glands: No masses seen. Aorta: Abdominal portion non-dilated. Lymph nodes: Within normal limits. Soft tissues: Unremarkable. Bladder: Nearly empty but unremarkable. Bowel: No obstruction or bowel wall thickening. Diverticulosis of the sigmoid region. No evidence of diverticulitis. Normal quantity of stool. Peritoneal cavity: No ascites. No focal collection. No mesenteric inflammatory response. No free air. Bones: Scoliosis and degenerative changes. No spine or hip fractures. Reproductive organs: Unremarkable for age. IMPRESSION: No evidence of pulmonary emboli are other acute abnormality in the chest. There are multiple liver lesions which are suboptimally evaluated due to contrast timing. Several were small enhancing lesions which were echogenic on prior ultrasound, likely hemangiomas. There is a septated cystic lesion near the dome of the right lobe of the liver. No lesions appear particularly ominous. There is cholelithiasis but no gallbladder wall thickening or biliary dilatation. RADIATION DOSE DELIVERED: Total DLP DATA REPOSITORY: All CT scans at this facility are submitted to the National Radiology Data Registry (NRDR) Dose Index Registry (DIR) with the [employer] (A[employer]). RADIATION OPTIMIZATION: All CT scans at this facility use at least one of these dose optimization techniques: automated exposure control; mA and/or kV adjustment per patient size (includes targeted exams where dose is matched to clinical indication); or iterative reconstruction.
[2025-05-25 16:01] LABS: INR 1.0 (0.9-1.1); PTT Activated 24.3 sec (20.6-30.2); Prothrombin Time 10.5 sec (9.1-11.1)
[2025-05-25] MEDS: dilTIAZem 25 MG/5 ML VIAL 20 MG IVP (16:02)
--- NOTE | 2025-05-25 16:09 | NUR.NOTE ---
Nursing Note: pt denies cp at this time does not feel pvcs, AOx4, says she feels fine
[2025-05-25] MEDS: Normal Saline - Diluent 50 ML VIAL IJ (17:26)
[2025-05-25] MEDS: Normal Saline Flush 10 ML SYR IVP ×2 (17:27→17:31)
[2025-05-25] MEDS: Omnipaque 350 MG/ML 100 ML BTL IJ (17:27)
[2025-05-25 17:39] LABS: Troponin I 26 ng/L (<35)
[2025-05-25] MEDS: dilTIAZem 125 MG in Normal Saline 100 ML IV (18:10)
[2025-05-25] MEDS: dilTIAZem 25 MG/5 ML VIAL 10 MG IVP (18:18)
--- NOTE | 2025-05-25 19:04 | HPE_ITS ---
Date of service: 05/25/25 Time of Service: 19:04 Assessment and Plan Assessment and plan (1) Paroxysmal atrial fibrillation with RVR: Start date: 05/25/25 Status: Acute Assessment and plan: This is an 84-year-old lady with new onset atrial fibrillation with rapid ventricular response responding slowly to IV diltiazem infusion. She is chronically on diltiazem for hypertension. She is generally healthy and active but less active than when her was alive pre-COVID. She lives alone. She will be admitted to the ICU for IV diltiazem infusion and in the morning will have echocardiogram. Cardiology consultation can be considered if available and if not responding to IV diltiazem, consider pulm consultation with [facility] cardiology and consideration of modifying medical therapy versus cardioversion eventually. She is on Lovenox for DVT prophylaxis for now but I did discuss initiating Eliquis which can be followed up in the morning after further evaluation with echocardiogram. Her TSH was normal, she does drink alcohol daily with 1 cocktail and she does have chronic hypertension all of which are risk for atrial fibrillation. This was reviewed with the patient. There is no family history of atrial fibrillation but there is early, before the age of 50, heart disease in her immediate family. She is a full code. (2) HTN (hypertension): Status: Chronic Assessment and plan: Slightly elevated upon admission but improving on IV diltiazem. Monitor and adjust medical therapy as needed. If patient is not responding to diltiazem, consider additional treatment with metoprolol. She did not respond to metoprolol initially in the ED, but this was for treatment of tachycardia. (3) Intermittent palpitations: Start date: 08/03/20 Assessment and plan: Patient has a history of palpitations in 2020 with no mention since and the patient has no memory of this event. No previous echocardiogram can be seen in her records. (4) Sinus tachycardia: Start date: 08/03/20 Assessment and plan: This occurred at the time she was having palpitations and she was under increased stress with her having Alzheimer's. There is no previous evaluation and patient has no memory of the event. (5) Hyperlipidemia: Assessment and plan: Check lipids in the morning and consider treatment. History of Present Illness History of Present Illness Chief Complaint: 4 to 5 days of increased weakness with exertion. Narrative: This is an 84-year-old female patient who has a history of hypertension on Cardizem but on no other medications other than treatment for osteopenia. She has a vague history of sinus tachycardia and palpitations in August 2020 but she had no recollection of this problem and has no recollection of having previous echocardiograms. She was very active in her adult years retiring to [place] with her being avid biker's and hikers at the time they were together. She lost her to Alzheimer's in 2021 and since then she has been less active. She does read daily and does walk on a treadmill for 1 hour daily. 5 days prior to presentation the patient began to have increased symptoms of exertional weakness to where walking across the room was an effort. She was fine at rest. She denied any PND or peripheral edema and had no weight gain. She also had chest pressure but no true chest pain and she did not feel that she was short of breath. Her symptoms were exertional resolving with rest. She also had occasional palpitations to where she could feel her heartbeat. She denied radiation of the chest pressure or true chest pain. She came to the ED for evaluation and was found to have atrial fibrillation with a rapid ventricular response. She was initiated on IV diltiazem already being on diltiazem 240 mg daily. She did not respond to IV metoprolol. Her heart rate was better controlled coming down from the range of 150-162 just above 110. Her troponins were negative. She was not on anticoagulation and was placed on Lovenox for now but I did have discussion with her about long-term anticoagulation with Eliquis. She has not had any echocardiograms even with her episodes in 2020 and this will be updated. She was agreeable to being admitted for IV diltiazem drip. Her electrolytes were slightly off and this will also be treated. Her magnesium was 1.6 and potassium was 3.7 which was low normal. Her electrolytes would be repleted. Imaging did not reveal any acute PE but did reveal liver lesions which are known with ongoing evaluation. She does have slightly elevated liver function test which also is known and stable. She is a full code. Review of Systems Narrative: 13 point review of systems otherwise unrevealing or stable. PFSH All Active Problems Elevated LFTs (Acute) Chest pain (Acute) Atrial fibrillation with RVR (Acute) Paroxysmal atrial fibrillation with RVR (Acute) Diffuse axonal neuropathy (Acute) Foot drop, left (Acute) Weakness of both hands (Acute) Right foot drop (Acute) Nail dystrophy (Acute) Pain, foot (Acute) Corns and callosities (Acute) Mild sprain of right ankle (Acute) Tibial plateau fracture, right (Acute) Deep vein thrombosis (DVT) of right lower extremity (Acute) Ankle pain, right (Acute) Left knee DJD (Acute) HTN (hypertension) (Chronic) Medical History Nevus Actinic keratosis Seborrheic keratosis Roe angioma Multiple benign nevi Intermittent palpitations Reactive depression (situational) Hyperlipidemia Abnormal cardiovascular stress test Vision changes Sinus tachycardia Caregiver role strain Surgical History No significant past surgical history Family History Father Heart disease Social History Smoking/Tobacco Use Status: Never Smoking risk assessment performed?: Yes Alcohol Intake: current Alcohol Intake frequency: 0-2 drinks per day Alcohol type: wine and other Drug use: Never Substance use type: does not use Household members: none Housing: house Number of Children: 3 number of grandchildren: 5 current occupation: Retired Current gender identity: female What is your relationship status?: Panel score (0-1 are the most socially isolated patients): 1 What type of physical activity do you participate in: walking Seatbelt use: always Do you feel safe at home: Yes Do you feel safe in your relationship?: Yes Additional Social history: with dementia Meds Allergies and Home Medications Allergies Allergy/AdvReac Type Severity Reaction Status Date / Time No Known Allergies Allergy Unverified 05/25/25 14:38 Home Medications ?Medication ?Instructions ?Recorded ?Confirmed ?Type alendronate 70 mg tablet 70 mg PO QWEEK 02/09/2505/02 History cholecalciferol (vitamin D3) 50 50 mcg PO DAILY 05/25/25 History mcg (2,000 unit) capsule diltiazem HCl 240 mg 240 mg PO DAILY 05/25/25 History capsule,extended release 24 hr Exam Narrative Exam Narrative: General: Patient appears younger than stated age, thinly built, in no acute distress and alert and oriented x 3. HEENT: Normocephalic, eyes with pupils equal and reactive light symmetrically, extraocular movement intact and sclera anicteric. Oropharynx with moist mucosa and fair dentition. Neck: Supple without JVD. Back: Kyphotic without CVA tenderness. Lungs: Fair aeration and clear to auscultation percussion with no focalizing rales or rhonchi. No expiratory wheeze. Breast: Exam deferred. Heart: Irregularly irregular rhythm with tachycardic rate. No appreciable murmur or gallop. Abdomen: Scaphoid contour, soft and nontender to palpation no palpable hepatosplenomegaly. Bowel sounds positive in all quadrants. No guarding or rebound. Genitalia/rectal: Exam deferred. Extremities: No clubbing, cyanosis or pitting edema. Peripheral pulses intact. Skin: Normal color, warm and dry. Neuro: Cranial nerves II through XII gross intact, no focalized motor deficits and no tremor. Psych: Normal affect and mood. No abnormal thought processes. Remote and recent memory intact. Results Imaging Imaging Studies: EXAM: CT CHEST PE ABD PELVIS W CLINICAL HISTORY: chest pain, tachycardia, elevated lft's. TECHNIQUE: Imaging Protocol: Axial computed tomography images with coronal and sagittal reformatted images were created and reviewed. Computer aided detection (CAD) was utilized. CONTRAST MATERIAL: Intravenous: Omnipaque 350 Contrast volume:75 ml Oral: no COMPARISON: US US ABDOMEN from 05/04/2025 FINDINGS: CHEST: Pulmonary parenchyma: Mild respiratory motion and dependent changes. No consolidation. No dominant measurable mass. Tracheobronchial tree: No bronchiectasis. No mucous plugging.No bronchial wall thickening. Pleura: No effusion or pneumothorax. Mediastinum: Within normal limits. Pulmonary arteries: No visible emboli. Cardiovascular: The left atrium and left ventricle are quite enlarged. There is also right atrial dilatation. No pericardial effusion. Thoracic aorta non- dilated. Bones: Unremarkable for age. No lytic or blastic lesions. No compression fractures. Soft tissues: Unremarkable. ABDOMEN and PELVIS: Liver: The liver parenchyma not completely opacified. The hepatic veins are not yet opacified. The evaluation of liver lesions is limited. There are a few cysts. There are also some enhancing lesions. There is a cystic appearing lesion in the right lobe near the dome of the liver. Please see previous ultrasound report. Normal size and attenuation. Gallbladder and biliary tract: There are multiple small calcified stones in the dependent portion of the gallbladder. No evidence of wall thickening. No biliary dilatation. Pancreas: Normal density, no abnormal calcifications or inflammatory process. Spleen: Normal. Kidneys: Normal size, contour and axis. There is a 9 millimeter stone at the upper pole of the left kidney. There is a simple cyst of the upper pole of the right kidney. No follow-up is recommended. No obstructive uropathy. No suspicious masses seen. Adrenal glands: No masses seen. Aorta: Abdominal portion non-dilated. Lymph nodes: Within normal limits. Soft tissues: Unremarkable. Bladder: Nearly empty but unremarkable. Bowel: No obstruction or bowel wall thickening. Diverticulosis of the sigmoid region. No evidence of diverticulitis. Normal quantity of stool. Peritoneal cavity: No ascites. No focal collection. No mesenteric inflammatory response. No free air. Bones: Scoliosis and degenerative changes. No spine or hip fractures. Reproductive organs: Unremarkable for age. IMPRESSION: No evidence of pulmonary emboli are other acute abnormality in the chest. There are multiple liver lesions which are suboptimally evaluated due to contrast timing. Several were small enhancing lesions which were echogenic on prior ultrasound, likely hemangiomas. There is a septated cystic lesion near the dome of the right lobe of the liver. No lesions appear particularly ominous. There is cholelithiasis but no gallbladder wall thickening or biliary dilatation. Labs 05/25/25 15:12 05/25/25 15:12 Labs: Laboratory Results - last 24 hr 05/25/25 05/25/25 05/25/25 15:12 15:37 17:12 WBC 6.01 RBC 4.52 Hgb 13.7 Hct 39.7 MCV 88 MCH 30.3 MCHC 34.5 RDW 13.6 Plt Count MPV Immature Gran % 0.3 Neutrophils % 60.4 Lymphocytes % 29.6 Monocytes % 8.7 Eosinophils % 0.5 Basophils % 0.5 Nucleated RBC % 0.0 Absolute Neutrophils 3.63 Absolute Lymphocytes 1.78 Absolute Monocytes 0.52 Absolute Eosinophils 0.03 Absolute Basophils 0.03 RBC Morphology Normal PT Cancelled 10.5 INR Cancelled 1.0 APTT Cancelled 24.3 Sodium 141 Potassium 3.7 Chloride 108 H Carbon Dioxide 22.9 Anion Gap 10.1 BUN 19 Creatinine 0.64 Est GFR (CKD-EPI 2020) 88.43 Glucose 128 H Calcium 9.8 Magnesium 1.6 Total Bilirubin 1.30 H AST 130 H ALT 59 H Alkaline Phosphatase 79 Troponin I 24 26 NT-Pro-B Natriuret Pep 5468 H Total Protein 7.4 Albumin 4.6 TSH 1.16 Last Vital Signs Temp 36.7 C 05/25/25 14:25 Pulse 98 H 05/25/25 18:31 Resp 21 05/25/25 18:31 BP 131/91 H 05/25/25 18:31 Pulse Ox 90 L 05/25/25 18:31 VTE Prohylaxis Risk Level: Moderate/High Risk Contraindications: None Prophylaxis: Patient anticoagulated, Pharmacologic and Mechanical PAWSS Have you Been Recently Intoxicated or Drunk Within the Last 30 days?: No Have you Ever Experienced Previous Episodes of Alcohol Withdrawal?: No Have you ever Experienced Withdrawal Seizures?: No Have you ever Experienced Delirium Tremens(DT)s?: No Have you ever undergone Alcohol Rehabilitation Treatment (i.e, inpt ot outpatient treatment programs)?: No Have you ever Experienced Blackouts?: No Have you ever Combined Alcohol with other Downers within the last 90 days?: No Have you ever Combined Alcohol with any other Substance of Abuse during the last 90 days?: No Positive Blood Alcohol level on Presentation? [PCS.BAL]: No Evidence of Increased Autonomic Activity (i.e. HR>120, tremor, sweating, agitation, nausea)?: No Result: 0 Time Spent Time spent with Patient: >75 minutes Time was spent: preparing to see the patient(eg.review tests), obtaining and/or reviewing separately otained hiistory, ordering medications,tests, procedures, referring, communicating with other health manager primary care, indepentently interpreting results, counseling the patient and care coordination
[2025-05-25 19:50] LABS: Troponin I 28 ng/L (<35)
[2025-05-25 21:55] LABS: COVID-19 PCR Negative (Negative); RSV PCR Negative (Negative)
[2025-05-26] VITALS (26 sets, daily range): BP systolic 84–129; BP diastolic 48–90; PULSE 59–140; RESP 14–34; TEMP 36.9–37.5; O2SAT 86–96
[2025-05-26] MEDS: MAGNESIUM SULFATE 2 GM/50 ML BAG IV_INF ×2 (02:11→22:50)
[2025-05-26] MEDS: Potassium Chloride 20 MEQ TABCR PO (02:12)
[2025-05-26] MEDS: dilTIAZem 125 MG in Normal Saline 100 ML 15 MG IV ×3 (03:32→21:54)
--- NOTE | 2025-05-26 06:25 | W.PC.ACHO ---
Registration Status: ADM IN Primary Language: Preferred Language: Estonian ED Information & Data Chief Complaint Palpitatns 05/25/25 15:02 Triage Note patient sent from [facility] with 05/25/25 14:25 history of palpitations and chest pressure with low pressure. Patient state the symptoms started a couple days ago. Medical / Surgical History (Last Reviewed 05/25/25 @ 19:20 by Randy Plunkett) Nevus Actinic keratosis Seborrheic keratosis Roe angioma Multiple benign nevi Intermittent palpitations Reactive depression (situational) Hyperlipidemia Abnormal cardiovascular stress test Vision changes Sinus tachycardia Caregiver role strain (Last Reviewed 05/25/25 @ 19:20 by Randy Plunkett) No significant past surgical history Most Recent Vital Signs Temperature 36.7 C 05/25/25 20:58 Temperature Source Temporal Artery Scan 05/25/25 20:58 Pulse 99 H 05/26/25 05:25 Pulse 105 H 05/26/25 05:25 Respiratory Rate 34 H 05/26/25 05:25 Respiratory Effort Normal 05/25/25 20:58 Respiratory Depth Normal 05/25/25 20:58 Respiratory Pattern Normal 05/25/25 20:58 Blood Pressure 97/60 L 05/26/25 05:25 Blood Pressure Mean 72 05/26/25 05:25 Pulse Oximetry 92 05/26/25 05:25 Oxygen Delivery Method Nasal Cannula 05/25/25 20:58 Oxygen Flow Rate 2 05/25/25 20:58 Pain Level 0 05/25/25 19:24 Allergies No Known Allergies Allergy (Unverified 05/25/25 14:38) Active Medications Generic Name Dose Route Start Last Admin Trade Name Butch PRN Reason Stop Dose Admin Diltiazem HCl 125 mg/ Sodium 125 mls @ 5 mls/hr 05/25/25 16:15 05/26/25 03:32 Chloride IV 15 mg/hr INFUSION SYDNEY 15 mls/hr Protocol Administration 5 MG/HR Sodium Chloride 0 ml 05/25/25 20:00 05/25/25 17:27 Normal Saline Flush 10 Ml Syr IVP 10 ml BID SYDNEY Administration IV IV Catheter Type [Left Peripheral IV Antecubital] IV Catheter Type [Right Saline Lock Forearm] IV Catheter Gauge [Left 18 Antecubital] IV Catheter Gauge [Right 18 Forearm] Diet Orders Category Date Time Status Regular/Normal [DIET] Nutrition 05/26/25 Breakfast Active Diagnostics 05/26/25 05/25/25 05/25/25 Range/Units 05:35 20:53 19:22 WBC Pending (4.4-10.8) 10^3/uL RBC Pending (3.93-5.22) 10^6/uL Hgb Pending (11.2-15.7) g/dL Hct Pending (36.0-46.0) % MCV Pending (80-95) fL MCH Pending (27.0-33.0) pg MCHC Pending (32.0-36.0) % RDW Pending (11.7-14.6) % Plt Count Pending (130-400) 10^3/uL MPV Pending (8.0-11.0) fL Immature Gran % % Neutrophils % % Lymphocytes % % Monocytes % % Eosinophils % % Basophils % % Nucleated RBC % (0.0-0.3) % Absolute Neutrophils (1.2-6.7) 10^3/uL Absolute Lymphocytes (1.2-3.4) 10^3/uL Absolute Monocytes (0.1-0.8) 10^3/uL Absolute Eosinophils (0.0-0.7) 10^3/uL Absolute Basophils (0.0-0.2) 10^3/uL RBC Morphology PT Pending INR Pending APTT Sodium Pending (136-145) mmol/L Potassium Pending (3.5-5.1) mmol/L Chloride Pending (98-107) mmol/L Carbon Dioxide Pending (20.0-31.0) mmol/L Anion Gap Pending (3-11) mmol/L BUN Pending (9-23) mg/dL Creatinine Pending (0.55-1.02) mg/dL Est GFR (CKD-EPI 2020) Pending (mL/min/1.73m2) Glucose Pending (74-106) mg/dL Calcium Pending (8.3-10.6) mg/dL Magnesium (1.6-2.6) mg/dL Total Bilirubin Pending (0.2-1.2) mg/dL AST Pending (<34) U/L ALT Pending (10-49) U/L Alkaline Phosphatase Pending (46-116) U/L Troponin I 28 (<35) ng/L NT-Pro-B Natriuret Pep (<300) pg/mL Total Protein Pending (5.7-8.2) g/dL Albumin Pending (3.2-5.0) g/dL Triglycerides Pending Total Cholesterol Pending LDL Cholesterol, Calc Pending HDL Cholesterol Pending TSH (0.55-4.78) uIU/mL COVID-19 Source Nasopharynx SARS-CoV-2 (PCR) Negative (Negative) Influenza Type A (PCR) Negative (Negative) Influenza Type B (PCR) Negative (Negative) RSV (PCR) Negative (Negative) 05/25/25 05/25/25 05/25/25 Range/Units 17:12 15:37 15:12 WBC 6.01 (4.4-10.8) 10^3/uL RBC 4.52 (3.93-5.22) 10^6/uL Hgb 13.7 (11.2-15.7) g/dL Hct 39.7 (36.0-46.0) % MCV 88 (80-95) fL MCH 30.3 (27.0-33.0) pg MCHC 34.5 (32.0-36.0) % RDW 13.6 (11.7-14.6) % Plt Count (130-400) 10^3/uL MPV (8.0-11.0) fL Immature Gran % 0.3 % Neutrophils % 60.4 % Lymphocytes % 29.6 % Monocytes % 8.7 % Eosinophils % 0.5 % Basophils % 0.5 % Nucleated RBC % 0.0 (0.0-0.3) % Absolute Neutrophils 3.63 (1.2-6.7) 10^3/uL Absolute Lymphocytes 1.78 (1.2-3.4) 10^3/uL Absolute Monocytes 0.52 (0.1-0.8) 10^3/uL Absolute Eosinophils 0.03 (0.0-0.7) 10^3/uL Absolute Basophils 0.03 (0.0-0.2) 10^3/uL RBC Morphology Normal PT 10.5 Cancelled INR 1.0 Cancelled APTT 24.3 Cancelled Sodium 141 (136-145) mmol/L Potassium 3.7 (3.5-5.1) mmol/L Chloride 108 H (98-107) mmol/L Carbon Dioxide 22.9 (20.0-31.0) mmol/L Anion Gap 10.1 (3-11) mmol/L BUN 19 (9-23) mg/dL Creatinine 0.64 (0.55-1.02) mg/dL Est GFR (CKD-EPI 2020) 88.43 (mL/min/1.73m2) Glucose 128 H (74-106) mg/dL Calcium 9.8 (8.3-10.6) mg/dL Magnesium 1.6 (1.6-2.6) mg/dL Total Bilirubin 1.30 H (0.2-1.2) mg/dL AST 130 H (<34) U/L ALT 59 H (10-49) U/L Alkaline Phosphatase 79 (46-116) U/L Troponin I 26 24 (<35) ng/L NT-Pro-B Natriuret Pep 5468 H (<300) pg/mL Total Protein 7.4 (5.7-8.2) g/dL Albumin 4.6 (3.2-5.0) g/dL Triglycerides Total Cholesterol LDL Cholesterol, Calc HDL Cholesterol TSH 1.16 (0.55-4.78) uIU/mL COVID-19 Source SARS-CoV-2 (PCR) (Negative) Influenza Type A (PCR) (Negative) Influenza Type B (PCR) (Negative) RSV (PCR) (Negative) Intake and Output - 24 Hour Total 05/25/25 14:19 thru 05/26/25 03:32 Intake Total 1145.000 Output Total 575 Balance 570.000 Weight 53.6 kg Intake: IV 1145.000 Output: Urine 575 Other: Urine Color Yellow Light Natalia Urine Appearance Clear Urine Odor Normal Falls Risk Assessment History of Falls Previous History 05/25/25 16:57 Contributing Factors Unstable 05/25/25 16:57 Fall Total Score 18 05/25/25 16:57 Level of Risk Standard/Low Risk 05/25/25 16:57 Problems (Last Reviewed 05/25/25 @ 19:20 by Randy Plunkett) Paroxysmal atrial fibrillation with RVR (Acute) HTN (hypertension) (Chronic) Notes 05/25/25 16:09 Nursing Notes by Natalia Diaz Nursing Note: pt denies cp at this time does not feel pvcs, AOx4, says she feels fine Initialized on 05/25/25 16:09 - END OF NOTE Attestation Statement: By documenting the first initial, last name, and credentials of the reporting nurse below, both parties acknowledge that all relevant information regarding the patient handoff has been communicated, and that all questions have been addressed to ensure continuity and safety of care. Additional Patient Information/Comments: Report Received From: Emilia Schwartz RN
[2025-05-26 06:49] LABS: INR 1.0 (0.9-1.1); Prothrombin Time 9.9 sec (9.1-11.1)
[2025-05-26 06:58] LABS: ALT 59 U/L (10-49); AST 65 U/L (<34); Albumin 3.8 g/dL (3.2-5.0); Alkaline Phosphatase 62 U/L (46-116); Anion Gap 7.7 mmol/L (3-11); BUN 12 mg/dL (9-23); Bilirubin, Total 1.50 mg/dL (0.2-1.2); CO2 23.3 mmol/L (20.0-31.0); Calcium 8.9 mg/dL (8.3-10.6); Chloride 109 mmol/L (98-107); Cholesterol 218 mg/dL (<200); Glucose 111 mg/dL (74-106); HDL Cholesterol 108 mg/dL (>40); Potassium 3.7 mmol/L (3.5-5.1); Sodium 140 mmol/L (136-145); Total Protein 6.0 g/dL (5.7-8.2)
[2025-05-26 07:13] LABS: HCT 35.5 % (36.0-46.0); HGB 12.2 g/dL (11.2-15.7); MCH 30.4 pg (27.0-33.0); MCHC 34.4 % (32.0-36.0); MCV 89 fL (80-95); MPV 10.8 fL (8.0-11.0); Platelet Count 189 10^3/uL (130-400); RBC 4.01 10^6/uL (3.93-5.22); RDW 13.7 % (11.7-14.6); RDW-SD 44.3 fL; WBC 5.77 10^3/uL (4.4-10.8)
--- NOTE | 2025-05-26 08:25 | PDOC.CMIN ---
Date of service: 05/26/25 Time of Service: 08:25 Care Management Initial Assmt Initial Assessment Reason for Hospitalization: Paroxysmal atrial fibrillation with RVR: Functional Status/Living Situation Patient Presentation: Laura presented to the ED yesterday afternoon with c/o feeling that her heart was beating irregularly. She had been feeling this for the past 4 days. She also c/o chest pain and shortness of breath. Laura was found to be in afib with HRs well into the 100s. She is currently on a diltiazem gtt in the ICU, but it has been able to be titrated down. She is also required nc O2, but she is off that now. Laura was lying in bed, visiting with her daughter, Lona, when CM met with her today. Both ladies were very pleasant, and easy to talk with. Laura stated that she is feeling better, and she is not really feeling her heart beating in her chest anymore. HR was noted in the 110-122 while talking with CM. Laura is independent in the community, is still driving, and denies the need for additional supports at this time. Lona denied concerns. Lona lives 2 houses away from her mom, and Lona's daughter lives in between them. Paulette stated that she has a very strong support system. Town of Residence: [place] Resides with: Alone Significant Other/Family: Local (3 children, Lona, Martha and Fredrick) Natural Supports: family Employment Status: Retired Instrumental Activities of Daily Living (ADLs): Independent Medications Medication Management: No Issues/Barriers identified Advance Directives Advance Directives: Do you have an Advance Directive: Y 03/02/25, 15:17 AD On File at [facility]: Y 03/02/25, 15:17 Date Asked 01/22/19 05/02/25, 07:37 AD Date Reviewed 05/25/25 Today, 03:26 COLST On File at [facility] COLST Date Scanned Code Status Resuscitation Status Full Code Insurance Coverage/Financial Issues Insurance: Medicare Part A & B - AARP MCR Supplemental? Care Team Visit Care Team Role Provider Type Juhi Garcia Primary Care Provider NON-[facility] STAFF PHYSICIAN Moses Simon MD Emergency Provider [facility] STAFF PHYSICIAN Ranyd Plunkett Admit Provider NON-[facility] STAFF PHYSICIAN Attending Provider Discharge Potential Discharge Needs: PCP F/U Appt Anticipated Barriers to Discharge: None Identified Patient/Family Education Needs: Review discharge instructions, discuss Ask Me Three Transportation: Private vehicle Plan: Paulette is hoping to discharge home tomorrow. She will not require any home health services. Paulette will f/u with her PCP and continue per her plan of care. Paulette will transport home with family. CM will continue to follow. Social Determinants of Health Screening Will the Patient Participate in the Screening?: Unable to obtain PFSH All Active Problems Elevated LFTs (Acute) Chest pain (Acute) Atrial fibrillation with RVR (Acute) Paroxysmal atrial fibrillation with RVR (Acute) Diffuse axonal neuropathy (Acute) Foot drop, left (Acute) Weakness of both hands (Acute) Right foot drop (Acute) Nail dystrophy (Acute) Pain, foot (Acute) Corns and callosities (Acute) Mild sprain of right ankle (Acute) Tibial plateau fracture, right (Acute) Deep vein thrombosis (DVT) of right lower extremity (Acute) Ankle pain, right (Acute) Left knee DJD (Acute) HTN (hypertension) (Chronic) Medical History Nevus Actinic keratosis Seborrheic keratosis Roe angioma Multiple benign nevi Intermittent palpitations Reactive depression (situational) Hyperlipidemia Abnormal cardiovascular stress test Vision changes Sinus tachycardia Caregiver role strain Surgical History No significant past surgical history Family History Father Heart disease Social History Smoking/Tobacco Use Status: Never Smoking risk assessment performed?: Yes Alcohol Intake: current Alcohol Intake frequency: 0-2 drinks per day Alcohol type: wine and other Drug use: Never Substance use type: does not use Household members: none Housing: house Number of Children: 3 number of grandchildren: 5 current occupation: Retired Current gender identity: female What is your relationship status?: Panel score (0-1 are the most socially isolated patients): 1 What type of physical activity do you participate in: walking Seatbelt use: always Do you feel safe at home: Yes Do you feel safe in your relationship?: Yes Additional Social history: with dementia
[2025-05-26] MEDS: Enoxaparin 40 MG/0.4 ML SYR SC (08:38)
[2025-05-26] MEDS: Normal Saline Flush 10 ML SYR IVP ×2 (08:38→19:22)
[2025-05-26 10:39] LABS: Magnesium 2.2 mg/dL (1.6-2.6)
[2025-05-26] MEDS: Calcium Carbonate *TUMS* 500 MG CHEW PO (15:14)
--- NOTE | 2025-05-26 15:18 | W.PM.PROGNOT ---
Date of Service Date of service: 05/26/25 Time of Service: 07:00 Assessment and Plan Assessment and plan (1) Paroxysmal atrial fibrillation with RVR: Start date: 05/25/25 Status: Acute Assessment and plan: Rate still elevated on diltiazem drip overnight [place] [facility] [place] Starting metoprolol 25 q6h for rate control, can give additional 12.5 if she remains in RVR maxed on diltiazem Discussed anticoagulation, starting apixaban in the morning, discontinued enoxaparin Echo showing bilateral atrial dilation, not appropriate for amiodarone, but digoxin can be considered if necessary Ziopatch to be placed for 30 day monitoring at discharge Outpatient cardiology for planned cardioversion after 30 uninterrupted days of apixaban (2) HTN (hypertension): Status: Chronic Assessment and plan: Home regimen is only diltiazem 240 daily Normotensive on diltiazem drip (3) Intermittent palpitations: Start date: 08/03/20 Assessment and plan: Patient has a history of palpitations in 2020 with no mention since and the patient has no memory of this event. No previous echocardiogram can be seen in her records. (4) Sinus tachycardia: Start date: 08/03/20 Assessment and plan: This occurred at the time she was having palpitations and she was under increased stress with her having Alzheimer's. There is no previous evaluation and patient has no memory of the event. (5) Hyperlipidemia: Assessment and plan: Mildly elevated cholesterol Outpatient consideration for statin Subjective Subjective Interval history since last seen: Mrs. Barajas is comfortable in bed with multiple family members at bedside. No pain. She feels occasional light chest pressure. Exam Narrative Exam Narrative: General: This is a pleasant woman in no distress HEENT: Normocephalic, atraumatic CV: Tachycardic to 120's, irregular rhythm Resp: CTAB Abd: soft, NTND MSK: voluntary motion x4 Neuro: awake, alert, no focal deficits Objective Last Vital Signs Temp 36.7 C 05/25/25 20:58 Pulse 82 05/26/25 13:02 Resp 18 05/26/25 13:02 BP 114/77 05/26/25 13:02 Pulse Ox 93 05/26/25 12:01 Laboratory Results - last 24 hr 05/25/25 05/25/25 05/25/25 15:12 15:37 17:12 WBC 6.01 RBC 4.52 Hgb 13.7 Hct 39.7 MCV 88 MCH 30.3 MCHC 34.5 RDW 13.6 Plt Count MPV Immature Gran % 0.3 Neutrophils % 60.4 Lymphocytes % 29.6 Monocytes % 8.7 Eosinophils % 0.5 Basophils % 0.5 Nucleated RBC % 0.0 Absolute Neutrophils 3.63 Absolute Lymphocytes 1.78 Absolute Monocytes 0.52 Absolute Eosinophils 0.03 Absolute Basophils 0.03 RBC Morphology Normal PT Cancelled 10.5 INR Cancelled 1.0 APTT Cancelled 24.3 Sodium 141 Potassium 3.7 Chloride 108 H Carbon Dioxide 22.9 Anion Gap 10.1 BUN 19 Creatinine 0.64 Est GFR (CKD-EPI 2020) 88.43 Glucose 128 H Calcium 9.8 Magnesium 1.6 Total Bilirubin 1.30 H AST 130 H ALT 59 H Alkaline Phosphatase 79 Troponin I 24 26 NT-Pro-B Natriuret Pep 5468 H Total Protein 7.4 Albumin 4.6 Triglycerides Total Cholesterol LDL Cholesterol, Calc HDL Cholesterol TSH 1.16 COVID-19 Source SARS-CoV-2 (PCR) Influenza Type A (PCR) Influenza Type B (PCR) RSV (PCR) 05/25/25 05/25/25 05/26/25 19:22 20:53 06:05 WBC 5.77 RBC 4.01 Hgb 12.2 Hct 35.5 L MCV 89 MCH 30.4 MCHC 34.4 RDW 13.7 Plt Count 189 MPV 10.8 Immature Gran % Neutrophils % Lymphocytes % Monocytes % Eosinophils % Basophils % Nucleated RBC % Absolute Neutrophils Absolute Lymphocytes Absolute Monocytes Absolute Eosinophils Absolute Basophils RBC Morphology PT 9.9 INR 1.0 APTT Sodium 140 Potassium 3.7 Chloride 109 H Carbon Dioxide 23.3 Anion Gap 7.7 BUN 12 Creatinine 0.56 Est GFR (CKD-EPI 2020) 103.17 Glucose 111 H Calcium 8.9 Magnesium 2.2 Total Bilirubin 1.50 H AST 65 H ALT 59 H Alkaline Phosphatase 62 Troponin I 28 NT-Pro-B Natriuret Pep Total Protein 6.0 Albumin 3.8 Triglycerides 85 Total Cholesterol 218 H LDL Cholesterol, Calc 92.7 HDL Cholesterol 108 TSH COVID-19 Source Nasopharynx SARS-CoV-2 (PCR) Negative Influenza Type A (PCR) Negative Influenza Type B (PCR) Negative RSV (PCR) Negative PAWSS Have you Been Recently Intoxicated or Drunk Within the Last 30 days?: No Have you Ever Experienced Previous Episodes of Alcohol Withdrawal?: No Have you ever Experienced Withdrawal Seizures?: No Have you ever Experienced Delirium Tremens(DT)s?: No Have you ever undergone Alcohol Rehabilitation Treatment (i.e, inpt ot outpatient treatment programs)?: No Have you ever Experienced Blackouts?: No Have you ever Combined Alcohol with other Downers within the last 90 days?: No Have you ever Combined Alcohol with any other Substance of Abuse during the last 90 days?: No Positive Blood Alcohol level on Presentation? [PCS.BAL]: No Evidence of Increased Autonomic Activity (i.e. HR>120, tremor, sweating, agitation, nausea)?: No Result: 0 VTE Prohylaxis Risk Level: Moderate/High Risk Contraindications: None Prophylaxis: Patient anticoagulated Time Spent with Patient Time Spent with Patient: 35-49 minutes Time was spent: preparing to see the patient(eg.review tests), obtaining and/or reviewing separately otained hiistory, ordering medications,tests, procedures, referring, communicating with other health healthcare advisory services manager, indepentently interpreting results, counseling the patient and care coordination
[2025-05-26] MEDS: Metoprolol 25 MG TAB PO (18:20)
[2025-05-26] MEDS: Apixaban 5 MG TAB PO (19:21)
[2025-05-26 22:07] LABS: Magnesium 1.7 mg/dL (1.6-2.6)
[2025-05-26 22:08] LABS: Anion Gap 8.3 mmol/L (3-11); BUN 15 mg/dL (9-23); CO2 22.7 mmol/L (20.0-31.0); Calcium 8.9 mg/dL (8.3-10.6); Chloride 106 mmol/L (98-107); Glucose 163 mg/dL (74-106); Potassium 3.7 mmol/L (3.5-5.1); Sodium 137 mmol/L (136-145)
[2025-05-26] MEDS: POTASSIUM CHLORIDE 10 MEQ/100 ML BAG 50 MEQ IV_INF (22:51)
[2025-05-27] VITALS (38 sets, daily range): BP systolic 73–124; BP diastolic 52–112; PULSE 72–141; RESP 17–30; TEMP 37–37.1; O2SAT 86–96
[2025-05-27] MEDS: Furosemide 20 MG/2 ML VIAL IVP (01:09)
[2025-05-27] MEDS: Metoprolol 25 MG TAB PO ×4 (01:10→20:16)
--- NOTE | 2025-05-27 02:00 | RT.EKG_ITS ---
APPROVED REPORT Exam: Resting ECG Reason for Exam: Suspected heart rhythm conversion Patient Location: I HR:129 bpm ECG Measurements Heart Rate 129 AXIS ME 71 P 11 QRSd 137 QRS 61 QT 428 T -85 QTc 628 Conclusion Sinus tachycardia...rate> 99 Consider atrial flutter LBBB
[2025-05-27] MEDS: Normal Saline 250 ML IV (02:45)
[2025-05-27 06:46] LABS: HCT 34.3 % (36.0-46.0); HGB 12.0 g/dL (11.2-15.7); MCH 30.9 pg (27.0-33.0); MCHC 35.0 % (32.0-36.0); MCV 88 fL (80-95); MPV 10.7 fL (8.0-11.0); Platelet Count 167 10^3/uL (130-400); RBC 3.88 10^6/uL (3.93-5.22); RDW 13.8 % (11.7-14.6); RDW-SD 44.4 fL; WBC 8.92 10^3/uL (4.4-10.8)
[2025-05-27 06:53] LABS: INR 1.0 (0.9-1.1); Prothrombin Time 10.2 sec (9.1-11.1)
[2025-05-27 07:12] LABS: ALT 68 U/L (10-49); AST 59 U/L (<34); Albumin 3.7 g/dL (3.2-5.0); Alkaline Phosphatase 62 U/L (46-116); Anion Gap 7.2 mmol/L (3-11); BUN 10 mg/dL (9-23); Bilirubin, Total 2.10 mg/dL (0.2-1.2); CO2 23.8 mmol/L (20.0-31.0); Calcium 8.5 mg/dL (8.3-10.6); Chloride 105 mmol/L (98-107); Glucose 131 mg/dL (74-106); Potassium 3.6 mmol/L (3.5-5.1); Sodium 136 mmol/L (136-145); Total Protein 5.9 g/dL (5.7-8.2)
[2025-05-27] MEDS: Apixaban 5 MG TAB PO (07:36)
[2025-05-27] MEDS: Normal Saline Flush 10 ML SYR IVP ×4 (07:37→20:18)
[2025-05-27] MEDS: Omnipaque 350 MG/ML 100 ML BTL IJ (11:13)
[2025-05-27] MEDS: Normal Saline - Diluent 50 ML VIAL IJ (11:13)
--- NOTE | 2025-05-27 11:25 | DI.CT_ITS ---
Exam(s) CT CHEST PE CTA EXAM: CT CHEST PE CTA CLINICAL HISTORY: new hypoxia query PE 2/2 new afib. TECHNIQUE: Imaging Protocol: Axial CT angiography was performed with multi- slice acquisition and multi-planar and/or 3D reconstructions. Lung Computer Aided Detection (CAD) was utilized. CONTRAST MATERIAL: Intravenous: Omnipaque 350 contrast volume:59 mL COMPARISON: CT CT CHEST PE ABD PELVIS W from 05/25/2025 FINDINGS: The examination is limited due to patient motion artifact. Tracheobronchial tree: Patent where visualized. No bronchiectasis. Pulmonary parenchyma: There moderate size bilateral pleural effusions. There are ground-glass opacities in the dependent portions of the lower lobes and the right upper lobe. Pulmonary Arteries: No evidence of filling defect to suggest pulmonary emboli. Mediastinum and Liz: No dominant adenopathy or fluid collection. The esophagus is unremarkable. Visualized thyroid gland: Unremarkable. Pleura: There is no pneumothorax. There are moderate size bilateral pleural effusions. Heart: Cardiomegaly. No coronary artery calcifications are seen. No pericardial effusion. Aorta: Thoracic aorta non-dilated. Atherosclerotic calcification is present. Due to the timing of the bolus, there is poor opacification of the thoracic aorta. Upper abdomen: There is a stable area of decreased attenuation in the periphery of the liver. This area should be further evaluated with an MRI when clinically appropriate. Soft tissues: Unremarkable. Bones: Within normal limits for the patient's age. IMPRESSION: 1. There is no evidence of a pulmonary embolism or thoracic aortic aneurysm. 2. Cardiomegaly. 3. Moderate size bilateral pleural effusions. 4. Ground-glass opacities in the lungs. This can be seen with infectious processes including opportunistic infections and viral pneumonias such as COVID- 19, chronic interstitial pneumonitis or acute disease such as pulmonary edema. 5. The preliminary [facility] report was reviewed. RADIATION DOSE DELIVERED: 42.62mGy.cm Total DLP DATA REPOSITORY: All CT scans at this facility are submitted to the National Radiology Data Registry (NRDR) Dose Index Registry (DIR) with the [employer] ([employer]). RADIATION OPTIMIZATION: All CT scans at this facility use at least one of these dose optimization techniques: automated exposure control; mA and/or kV adjustment per patient size (includes targeted exams where dose is matched to clinical indication); or iterative reconstruction.
--- NOTE | 2025-05-27 11:47 | DI.[facility]_ITS ---
PROCEDURE INFORMATION: Exam: CTA Chest With Contrast Exam date and time: 05/27/2025 11:15 AM Age: 84 years old Clinical indication: Other: New hypoxia TECHNIQUE: Imaging protocol: Computed tomographic angiography of the chest with contrast. Exam focused on the arteries. 3D rendering (Not supervised by radiologist): MIP and/or 3D reconstructed images were created by the technologist. Radiation optimization: All CT scans at this facility use at least one of these dose optimization techniques: automated exposure control; mA and/or kV adjustment per patient size (includes targeted exams where dose is matched to clinical indication); or iterative reconstruction. Contrast material: OMNIPAQUE 350; Contrast volume: 59 ml; Contrast route: INTRAVENOUS (IV); COMPARISON: CT CHEST PE ABD PELVIS W 05/25/2025 5:25 PM FINDINGS: Pulmonary arteries: No evidence of pulmonary embolus to the segmental level. Aorta: No aneurysm of the aorta. No dissection of the aorta. Lungs: Ground-glass opacities in the right upper lobe and both lower lobes may represent multifocal pneumonia. Pleural spaces: Moderate bilateral pleural effusions. Heart: Unremarkable. No cardiomegaly. No pericardial effusion. Lymph nodes: Unremarkable. No enlarged lymph nodes. Liver: Wedge of hypoattenuation in the anterior aspect of the liver 2.6 x 2.5 cm. Forty-two Hounsfield units. Bones/joints: Unremarkable. No acute fracture. Soft tissues: Unremarkable. IMPRESSION: 1. No evidence of pulmonary embolus to the segmental level. 2. Moderate bilateral pleural effusions. 3. Ground-glass opacities in the right upper lobe and both lower lobes may represent multifocal pneumonia. 4. Wedge of hypoattenuation in the anterior aspect of the liver 2.6 x 2.5 cm. Forty-two Hounsfield units. recommend liver MRI Dictated and Authenticated by: Venkatesh Sadler MD. Orderin Srinivasa Chandler MD
[2025-05-27] MEDS: Acetaminophen 325 MG TAB 650 MG PO ×3 (11:51→20:55)
[2025-05-27] MEDS: dilTIAZem 125 MG in Normal Saline 100 ML IV (12:42)
[2025-05-27] MEDS: Furosemide 40 MG/4 ML VIAL IVP (14:14)
[2025-05-27] MEDS: cefTRIAXone 2 GM/50 ML BAG IVPB (14:14)
[2025-05-27] MEDS: AZITHROMYCIN 500 MG in Normal Saline 250 ML 250 MG IVPB (14:30)
[2025-05-27] MEDS: Calcium Carbonate *TUMS* 500 MG CHEW PO (15:25)
--- NOTE | 2025-05-27 16:39 | PGE_ITS ---
Date of Service Date of service: 05/27/25 Time of Service: 08:00 Assessment and Plan Assessment and plan (1) Paroxysmal atrial fibrillation with RVR: Start date: 05/25/25 Status: Acute Assessment and plan: Rate still elevated on diltiazem drip overnight [place] [facility] [place] Starting metoprolol 25 q6h for rate control, can give additional 12.5 if she remains in RVR maxed on diltiazem Discussed anticoagulation, started apixaban, discontinued enoxaparin Echo showing bilateral atrial dilation, not appropriate for amiodarone, but digoxin can be considered if necessary Ziopatch to be placed for 30 day monitoring at discharge Outpatient cardiology for planned cardioversion after 30 uninterrupted days of apixaban May 27: Improved HR but still in the 110's. Continue metoprolol 25 mg q6H. Continue to taper off diltiazem drip. (2) Pneumonia due to Streptococcus pneumoniae: Status: Acute Assessment and plan: Presumptive diagnosis, species not available, likely CAP CT chest done out of concern for PE. No PE, but infiltrates and effusions Started ceftriaxone and azithromycin Discussed thoracentesis with ED physician (for procedural support), will defer for now Diuresing with IV furosemide (3) HTN (hypertension): Status: Chronic Assessment and plan: Home regimen is diltiazem 240 daily, single agent Normotensive on diltiazem drip Subjective Subjective Interval history since last seen: Mrs. Barajas is up in a chair, was started on 4L O2 overnight, now on 2L. Family at bedside. She reports feeling more tired. Exam Narrative Exam Narrative: General: This is a pleasant woman in no distress HEENT: Normocephalic, atraumatic CV: Tachycardic to 110's, irregular rhythm Resp: Diminished breath sounds worse on the lower left, good movement of air without increased work of breathing on 2L Abd: soft, NTND MSK: voluntary motion x4 Neuro: awake, alert, no focal deficits Objective Last Vital Signs Temp 36.9 C 05/26/25 23:50 Pulse 98 H 05/27/25 13:01 Resp 22 05/27/25 13:01 BP 88/63 L 05/27/25 13:01 Pulse Ox 92 05/27/25 13:01 Laboratory Results - last 24 hr 11/26/25 11/27/25 21:32 06:06 WBC 8.92 RBC 3.88 L Hgb 12.0 Hct 34.3 L MCV 88 MCH 30.9 MCHC 35.0 RDW 13.8 Plt Count 167 MPV 10.7 PT 10.2 INR 1.0 Sodium 137 136 Potassium 3.7 3.6 Chloride 106 105 Carbon Dioxide 22.7 23.8 Anion Gap 8.3 7.2 BUN 15 10 Creatinine 0.69 0.58 Est GFR (CKD-EPI 2020) 81.08 99.07 Glucose 163 H 131 H Calcium 8.9 8.5 Magnesium 1.7 Total Bilirubin 2.10 H AST 59 H ALT 68 H Alkaline Phosphatase 62 Total Protein 5.9 Albumin 3.7 PAWSS Have you Been Recently Intoxicated or Drunk Within the Last 30 days?: No Have you Ever Experienced Previous Episodes of Alcohol Withdrawal?: No Have you ever Experienced Withdrawal Seizures?: No Have you ever Experienced Delirium Tremens(DT)s?: No Have you ever undergone Alcohol Rehabilitation Treatment (i.e, inpt ot outpatient treatment programs)?: No Have you ever Experienced Blackouts?: No Have you ever Combined Alcohol with other Downers within the last 90 days?: No Have you ever Combined Alcohol with any other Substance of Abuse during the last 90 days?: No Positive Blood Alcohol level on Presentation? [PCS.BAL]: No Evidence of Increased Autonomic Activity (i.e. HR>120, tremor, sweating, agitation, nausea)?: No Result: 0 VTE Prohylaxis Risk Level: Moderate/High Risk Contraindications: None Prophylaxis: Patient anticoagulated Time Spent with Patient Time Spent with Patient: 35-49 minutes Time was spent: preparing to see the patient(eg.review tests), obtaining and/or reviewing separately otained hiistory, ordering medications,tests, procedures, referring, communicating with other health managed care manager, indepentently interpreting results, counseling the patient and care coordination
[2025-05-27 19:25] LABS: COVID-19 PCR Negative (Negative); RSV PCR Negative (Negative)
[2025-05-27] MEDS: dilTIAZem 30 MG TAB 60 MG PO ×2 (20:16→23:16)
[2025-05-27] MEDS: Apixaban 2.5 MG TAB PO (20:17)
--- NOTE | 2025-05-27 20:58 | CE_ITS ---
Date of service: 05/27/25 Time of Service: 20:59 Event Note: This is an 84-year-old lady admitted for new onset atrial fibrillation patient with rapid ventricular response. She continues to have intermittent tachycardia and is converting from IV diltiazem to oral diltiazem along with oral metoprolol. She has not received digoxin though this would be the next step by consultation with [facility] cardiology. Plans were to have her on Eliquis which has been initiated with cardioversion after 30 days. She does get weak but does not have chest pain as her tachycardia occurs. She does have increasing tachycardia with movement and exertion. Review of the patient's chart with previous lab testing, she was worked up for foot drop with some autoimmune evaluation and inflammation could be a cause of atrial fibrillation which has not been investigated. She does have progressive pleural effusions and possible p neumonia being treated at this time. Lab was reordered for electrolyte deficiencies and was found to be adequate for now without replacement needed. CRP was markedly elevated but sed rate was normal. BNP was slightly elevated but stable. She had not been aggressively diuresed at this time. She feels more comfortable when her heart rate is just over 100 or lower and this appears to be slowly achieved with conversion to oral therapy. I had discussed with the patient about further investigations and treatment options and this can be ongoing with cardiology as an outpatient with patient stabilized on oral therapy at this time. Physical exam was stable with patient having some coarse crackles in the bases. Heart exam was stable with tachycardia and variable rate. She did not have any edema. Assessment/plan: Paroxysmal atrial fibrillation with rapid ventricular response slowly improving on oral therapy the patient is symptomatic when she is tachycardic. She does have an elevated CRP which need to be monitored and followed up as cardiology does further investigations of etiology of atrial fibrillation though chronic hypertension with her age and alcohol use daily could be the etiologies. She does have an element of CHF with elevated PA pressures but normal left-ventricular ejection fraction and dilated atria more on the right than left. Her BMP is stable and electrolytes are stable with no need for further magnesium or potassium supplement at this time but these will be monitored. She remains a full code. Time Spent with Patient Time spent in critical care(minutes): 45 Time Spent Included: Chart review, Documenting critically ill care and Time at immediate bedside
[2025-05-27 21:36] LABS: ESR 12 mm/hr (0-30)
[2025-05-27 21:58] LABS: Anion Gap 10.7 mmol/L (3-11); BUN 20 mg/dL (9-23); CO2 22.3 mmol/L (20.0-31.0); Calcium 8.7 mg/dL (8.3-10.6); Chloride 104 mmol/L (98-107); Glucose 146 mg/dL (74-106); Potassium 3.7 mmol/L (3.5-5.1); Sodium 137 mmol/L (136-145)
[2025-05-27 22:00] LABS: C-Reactive Protein 13.02 mg/dL (<=0.50)
[2025-05-27 22:03] LABS: Magnesium 2.0 mg/dL (1.6-2.6)
[2025-05-28] VITALS (38 sets, daily range): BP systolic 80–118; BP diastolic 56–90; PULSE 75–135; RESP 7–29; TEMP 36.9; O2SAT 85–97
[2025-05-28] MEDS: Metoprolol 25 MG TAB PO ×4 (02:45→19:39)
[2025-05-28 07:02] LABS: HCT 34.8 % (36.0-46.0); HGB 11.9 g/dL (11.2-15.7); MCH 31.1 pg (27.0-33.0); MCHC 34.2 % (32.0-36.0); MCV 91 fL (80-95); MPV 11.3 fL (8.0-11.0); Platelet Count 182 10^3/uL (130-400); RBC 3.83 10^6/uL (3.93-5.22); RDW 13.6 % (11.7-14.6); RDW-SD 45.0 fL; WBC 7.69 10^3/uL (4.4-10.8)
[2025-05-28 07:11] LABS: INR 1.0 (0.9-1.1); Prothrombin Time 10.1 sec (9.1-11.1)
[2025-05-28 07:29] LABS: Magnesium 2.0 mg/dL (1.6-2.6)
[2025-05-28 07:30] LABS: ALT 84 U/L (10-49); AST 62 U/L (<34); Albumin 3.7 g/dL (3.2-5.0); Alkaline Phosphatase 92 U/L (46-116); Anion Gap 12 mmol/L (3-11); BUN 15 mg/dL (9-23); Bilirubin, Total 1.30 mg/dL (0.2-1.2); CO2 24.0 mmol/L (20.0-31.0); Calcium 8.3 mg/dL (8.3-10.6); Chloride 103 mmol/L (98-107); Glucose 100 mg/dL (74-106); Potassium 3.5 mmol/L (3.5-5.1); Sodium 139 mmol/L (136-145); Total Protein 6.0 g/dL (5.7-8.2)
[2025-05-28] MEDS: Normal Saline Flush 10 ML SYR IVP ×3 (07:33→19:40)
[2025-05-28] MEDS: Apixaban 2.5 MG TAB PO ×2 (07:33→19:40)
[2025-05-28] MEDS: dilTIAZem CD 120 MG CAPCR 240 MG PO (07:33)
--- NOTE | 2025-05-28 08:33 | PDOC.CMPRO ---
Date of service: 05/28/25 Time of Service: 08:33 Care Management Progress Note Progress Note Text Progress Note Text: Paulette was sitting up in a chair when CM met with her. She was very pleasant in manner and easily engaged with CM. Paulette was admitted with PAF with RVR. Her rates continue to be in the 100-120+ range. She was given a one time dose of IV Digoxin today and will be continued on oral Digoxin. Laura talked a lot about her great grandchildren that she has cared for. She has been taking care of her 5 year old great grandson since he was a few months old and they are really close. Paulette also talked about her late and the course of his illness. She shared that she hopes to be able to go home soon. Discharge Potential Discharge Needs: PCP F/U Appt Anticipated Barriers to Discharge: None Identified Patient/Family Education Needs: Review discharge instructions, discuss Ask Me Three Transportation: Private vehicle Plan: Paulette will be discharged home with no new services when medically cleared. She will f/u with her PCP and of care and transport home with family. CM will continue to follow ands assess for discharge concerns.. Social Determinants of Health Screening Will the Patient Participate in the Screening?: Unable to obtain
[2025-05-28] MEDS: Acetaminophen 325 MG TAB 650 MG PO ×2 (13:11→20:23)
[2025-05-28] MEDS: cefTRIAXone 2 GM/50 ML BAG IVPB (13:48)
[2025-05-28] MEDS: Digoxin 0.5 MG/2 ML AMP 0.25 MG IVP (14:45)
[2025-05-28] MEDS: levoFLOXacin 500 MG, levoFLOXacin 250 MG 750 MG PO (16:05)
--- NOTE | 2025-05-28 16:20 | PGE_ITS ---
Date of Service Date of service: 05/28/25 Time of Service: 08:00 Assessment and Plan Assessment and plan (1) Paroxysmal atrial fibrillation with RVR: Start date: 05/25/25 Status: Acute Assessment and plan: Rate still elevated on diltiazem drip overnight Discussed with [facility] [place] cardiology Starting metoprolol 25 q6h for rate control, can give additional 12.5 if she remains in RVR maxed on diltiazem Discussed anticoagulation, started apixaban, discontinued enoxaparin Echo showing bilateral atrial dilation, not appropriate for amiodarone, but digoxin can be considered if necessary Ziopatch to be placed for 30 day monitoring at discharge Outpatient cardiology for planned cardioversion after 30 uninterrupted days of apixaban May 27: Improved HR but still in the 110's. Continue metoprolol 25 mg q6H. Continue to taper off diltiazem drip. May 28: Diltiazem drip stopped last night, scheduled immediate release dilt 60 q6h overnight with continuing metoprolol 25 q6h. With HR increased again the morning, starting digoxin 0.25 IV loading dose, followed by 0.25 PO doses q6H with morning trough. No response after 2 hours, restarted diltiazem drip. (2) Pneumonia due to Streptococcus pneumoniae: Status: Acute Assessment and plan: Presumptive diagnosis, species not available, likely CAP CT chest done out of concern for PE. No PE, but infiltrates and effusions Started ceftriaxone and azithromycin Discussed thoracentesis with ED physician (for procedural support), will defer for now Diuresing with IV furosemide May 28: Patient had been started on levofloxacin on arrival, this is now discontinued. Patient had vomiting after ceftriaxone/azithromycin yesterday. Stopped IV abx in favor of augmentin and doxycycline. She is on room air. (3) HTN (hypertension): Status: Chronic Assessment and plan: Home regimen is diltiazem 240 daily, single agent Normotensive on diltiazem drip Anticipate home regimen will be dilt 240, metoprolol 50 BID, digoxin 25 Subjective Subjective Interval history since last seen: Mrs. Barajas is up in a chair on room air. She had been on 4L most of the night. Her heart rate had been high 90's low 100's until she awoke this morning and she has been back in the 130's. Exam Narrative Exam Narrative: General: This is a pleasant woman in no distress HEENT: Normocephalic, atraumatic CV: Tachycardic to 110's, irregular rhythm Resp: Diminished breath sounds worse on the lower left, good movement of air without increased work of breathing on 2L Abd: soft, NTND MSK: voluntary motion x4 Neuro: awake, alert, no focal deficits Objective Last Vital Signs Temp 36.9 C 05/28/25 08:28 Pulse 115 H 05/28/25 15:00 Resp 18 05/28/25 15:00 BP 105/77 05/28/25 15:00 Pulse Ox 92 05/28/25 15:00 Laboratory Results - last 24 hr 05/27/25 05/27/25 05/28/25 06:05 21:15 05:45 WBC 7.69 RBC 3.83 L Hgb 11.9 Hct 34.8 L MCV 91 MCH 31.1 MCHC 34.2 RDW 13.6 Plt Count 182 MPV 11.3 H ESR 12 PT 10.1 INR 1.0 Sodium 137 139 Potassium 3.7 3.5 Chloride 104 103 Carbon Dioxide 22.3 24.0 Anion Gap 10.7 12 H BUN 20 15 Creatinine 0.73 0.61 Est GFR (CKD-EPI 2020) 75.98 93.47 Glucose 146 H 100 Calcium 8.7 8.3 Magnesium 2.0 Cancelled Total Bilirubin AST ALT Alkaline Phosphatase C-Reactive Protein 13.02 H NT-Pro-B Natriuret Pep 6282 H Total Protein Albumin COVID-19 Source Nasopharynx SARS-CoV-2 (PCR) Negative Influenza Type A (PCR) Negative Influenza Type B (PCR) Negative RSV (PCR) Negative 05/28/25 05:45 WBC RBC Hgb Hct MCV MCH MCHC RDW Plt Count MPV ESR PT INR Sodium Potassium Chloride Carbon Dioxide Anion Gap BUN Creatinine Est GFR (CKD-EPI 2020) Glucose Calcium Magnesium 2.0 Total Bilirubin 1.30 H AST 62 H ALT 84 H Alkaline Phosphatase 92 C-Reactive Protein NT-Pro-B Natriuret Pep Total Protein 6.0 Albumin 3.7 COVID-19 Source SARS-CoV-2 (PCR) Influenza Type A (PCR) Influenza Type B (PCR) RSV (PCR) PAWSS Have you Been Recently Intoxicated or Drunk Within the Last 30 days?: No Have you Ever Experienced Previous Episodes of Alcohol Withdrawal?: No Have you ever Experienced Withdrawal Seizures?: No Have you ever Experienced Delirium Tremens(DT)s?: No Have you ever undergone Alcohol Rehabilitation Treatment (i.e, inpt ot outpatient treatment programs)?: No Have you ever Experienced Blackouts?: No Have you ever Combined Alcohol with other Downers within the last 90 days?: No Have you ever Combined Alcohol with any other Substance of Abuse during the last 90 days?: No Positive Blood Alcohol level on Presentation? [PCS.BAL]: No Evidence of Increased Autonomic Activity (i.e. HR>120, tremor, sweating, agitation, nausea)?: No Result: 0 VTE Prohylaxis Risk Level: Moderate/High Risk Contraindications: None Prophylaxis: Pharmacologic Time Spent with Patient Time Spent with Patient: 35-49 minutes Time was spent: preparing to see the patient(eg.review tests), obtaining and/or reviewing separately otained hiistory, ordering medications,tests, procedures, referring, communicating with other health home care rn, indepentently interpreting results, counseling the patient and care coordination
[2025-05-28] MEDS: Amoxicillin 875/Clav. 125 TAB PO (18:37)
[2025-05-28] MEDS: dilTIAZem 125 MG in Normal Saline 100 ML IV (18:52)
[2025-05-28] MEDS: Digoxin 0.25 MG TAB PO (19:40)
[2025-05-29] VITALS (49 sets, daily range): BP systolic 85–142; BP diastolic 50–123; PULSE 67–152; RESP 12–42; TEMP 36.8–37.4; O2SAT 83–99
[2025-05-29] MEDS: Metoprolol 25 MG TAB PO ×3 (02:12→13:51)
[2025-05-29] MEDS: Digoxin 0.25 MG TAB PO (02:12)
[2025-05-29 03:46] LABS: HCT 33.7 % (36.0-46.0); HGB 11.8 g/dL (11.2-15.7); MCH 31.1 pg (27.0-33.0); MCHC 35.0 % (32.0-36.0); MCV 89 fL (80-95); MPV 10.8 fL (8.0-11.0); Platelet Count 186 10^3/uL (130-400); RBC 3.80 10^6/uL (3.93-5.22); RDW 13.2 % (11.7-14.6); RDW-SD 42.5 fL; WBC 6.40 10^3/uL (4.4-10.8)
[2025-05-29 03:57] LABS: INR 1.0 (0.9-1.1); Prothrombin Time 10.5 sec (9.1-11.1)
[2025-05-29 04:02] LABS: Magnesium 1.8 mg/dL (1.6-2.6)
[2025-05-29 04:05] LABS: ALT 67 U/L (10-49); AST 37 U/L (<34); Albumin 3.6 g/dL (3.2-5.0); Alkaline Phosphatase 95 U/L (46-116); Anion Gap 12.3 mmol/L (3-11); BUN 15 mg/dL (9-23); Bilirubin, Total 0.80 mg/dL (0.2-1.2); CO2 21.7 mmol/L (20.0-31.0); Calcium 8.2 mg/dL (8.3-10.6); Chloride 103 mmol/L (98-107); Glucose 109 mg/dL (74-106); Potassium 3.4 mmol/L (3.5-5.1); Sodium 137 mmol/L (136-145); Total Protein 5.9 g/dL (5.7-8.2)
[2025-05-29 04:47] LABS: Digoxin 3.05 ng/mL (0.80-2.00)
[2025-05-29] MEDS: Doxycycline Hyclate 100 MG CAP PO (06:34)
--- NOTE | 2025-05-29 08:00 | RT.EKG_ITS ---
APPROVED REPORT Exam: Resting ECG Reason for Exam: Digoxin monitoring Patient Location: I HR:126 bpm ECG Measurements Heart Rate 126 AXIS OK [id number] P [id number] QRSd 135 QRS -19 QT 359 T 104 QTc 520 Conclusion Atrial fibrillation. Left bundle branch block...QRSd>120, broad/notched R
[2025-05-29] MEDS: Amoxicillin 875/Clav. 125 TAB PO (08:01)
[2025-05-29] MEDS: dilTIAZem CD 120 MG CAPCR 240 MG PO (08:01)
[2025-05-29] MEDS: Apixaban 2.5 MG TAB PO (08:01)
[2025-05-29] MEDS: Normal Saline Flush 10 ML SYR IVP (08:02)
[2025-05-29 10:11] LABS: Digoxin 1.27 ng/mL (0.80-2.00)
--- NOTE | 2025-05-29 13:31 | W.PM.DS.N ---
Date of service: 05/29/25 Time of Service: 08:00 DS: Diagnosis Discharge Diagnosis (1) Paroxysmal atrial fibrillation with RVR: Status: Acute Asessment and Plan: Rate stayed elevated on diltiazem drip overnight Discussed with [facility] cardiology May 26 Starting metoprolol 25 q6h for rate control, can give additional 12.5 if she remains in RVR maxed on diltiazem Discussed anticoagulation, started apixaban, discontinued enoxaparin Echo showing bilateral atrial dilation, not appropriate for amiodarone, but digoxin can be considered if necessary Ziopatch to be placed for 30 day monitoring at discharge Outpatient cardiology for planned cardioversion after 30 uninterrupted days of apixaban May 27: Improved HR but still in the 110's. Continue metoprolol 25 mg q6H. Continue to taper off diltiazem drip. May 28: Diltiazem drip stopped last night, scheduled immediate release dilt 60 q6h overnight with continuing metoprolol 25 q6h. With HR increased again the morning, starting digoxin 0.25 IV loading dose, followed by 0.25 PO doses q6H with morning trough. No response after 2 hours, restarted diltiazem drip. May 29: Patient continues to have elevated heart rate on CCB, BB and digoxin. Re-consulted [facility] cardiology who will take her in transfer. (2) Pneumonia due to Streptococcus pneumoniae: Status: Acute Asessment and Plan: Presumptive diagnosis, species not available, likely CAP CT chest done out of concern for PE. No PE, but infiltrates and effusions Started ceftriaxone and azithromycin Discussed thoracentesis with ED physician (for procedural support), will defer for now Diuresing with IV furosemide May 28: Patient had been started on levofloxacin on arrival, this is now discontinued. Patient had vomiting after ceftriaxone/azithromycin yesterday. Stopped IV abx in favor of augmentin and doxycycline. She is on room air. May 29: Patient is comfortable on room air. 4 days of antibiotics completed. (3) HTN (hypertension): Status: Chronic Asessment and Plan: Home regimen diltiazem 240 mg CD daily, continued. Discharge Plan Disposition Patient Disposition: Transfer-Acute Inpatient Care Specific Acute Inpt Facility: [facility] Condition: Critical Discharge Details Reason For Visit: PAF with RVR, HTN Admit Date/Time: 05/25/25 19:39 Admit Provider: Randy Plunkett Attending Provider: Randy Plunkett Primary Care Provider: Juhi Garcia Hospital Course Hospital Course: Laura Barajas is an 84 year old woman, independent at baseline and cognitively intact, presenting May 25 with palpitations which had not stopped for 4 days. She was found to be in atrial fibrillation with RVR into the 180's. She has chronic HTN for which she takes diltiazem 240 ER daily. She was initially responsive to diltiazem pushes, 10 mg IV then 20 mg IV, but returned to tachycardia over 150 and was started on a diltiazem drip. Overnight her rate did not improve. Echo was done. [facility] cardiology was consulted, advising addition of metoprolol 25 PO q6h. Echo showed dilated atria which relatively contraindicated amiodarone for this elderly patient; digoxin was discussed as the next step. Patient responded well to PO metoprolol overnight and she was able to be transitioned off diltiazem drip on hospital day 4. At this time she was on diltiazem 60 IR q6h and metoprolol 25 IR q6h. Unfortunately her rate again increased on May 29, and she was started on digoxin 0.25 IV in the late afternoon. Rate did not improve, so diltiazem drip was restarted. She got 2 additional doses of digoxin 0.25 mg PO. After a total of 0.75 mg digoxin, trough was 3.05. At mid-morning her trough had corrected to 1.27. As her heart rate persisted into the 130's, [facility] cardiology was again consulted and kindly accepted the patient for transfer. She is full code status. Home Meds and New Rx's Prescriptions: No Action alendronate 70 mg tablet 70 mg PO QWEEK cholecalciferol (vitamin D3) 50 mcg (2,000 unit) capsule 50 mcg PO DAILY diltiazem HCl 240 mg capsule,extended release 24hr 240 mg PO DAILY Discharge Instructions Activity:: Activity as Tolerated Equipment/Supplies:: No Equipment Needed Diet:: As Tolerated Discharge Orders Discharge Orders: Discharge Order (Routine); Ordered 05/29/25 Ordered By: Ramesh Bernabe Other Ambulatory Orders: Cardiac Event Recorder (Routine) Timeframe: 30 Days Facility: [facility] - Location: Respiratory Therapy Ordered By: Ramesh Bernabe DS: Summary Time Spent with Patient providing and/or coordinating discharge services: Greater than 30 minutes Status at Discharge Functional status at discharge: independent ambulation Overall status at discharge: patient is not back to baseline Mental Status: mental status grossly normal Speech and Movement: speech and movement normal Mood: congruent mood Affect: normal affect Exam Narrative Exam Narrative: General: This is a pleasant woman in no distress HEENT: Normocephalic, atraumatic CV: Tachycardic to 130's, irregular rhythm Resp: Diminished breath sounds worse on the lower left, improved, good movement of air without increased work of breathing on room air Abd: soft, NTND MSK: voluntary motion x4 Neuro: awake, alert, no focal deficits Psych Mental Status: mental status grossly normal Speech and Movement: speech and movement normal Mood: congruent mood Affect: normal affect DS: Data Vitals/I&O Vitals and I&O: Vital Signs Temperature 36.8 C 05/29/25 08:00 Temperature Source Temporal Artery Scan 05/29/25 08:00 Pulse 87 05/29/25 10:01 Pulse 112 H 05/29/25 10:01 Respiratory Rate 31 H 05/29/25 10:01 Respiratory Effort Normal 05/25/25 20:58 Respiratory Depth Normal 05/25/25 20:58 Respiratory Pattern Normal 05/25/25 20:58 Blood Pressure 105/73 05/29/25 10:00 Blood Pressure Mean 85 05/29/25 10:00 Pulse Oximetry 95 05/29/25 10:01 Oxygen Delivery Method Room Air 05/29/25 09:24 Oxygen Flow Rate 0 05/29/25 09:24 Pain Level 0 05/29/25 08:00 Intake & Output 05/28/25 05/29/25 05/29/25 23:59 11:59 23:59 Intake Total 709 / 949 379.667 / 379.667 Output Total 950 / 950 Balance 709 / 624 -570.333 / -570.333 Intake: IV 59.667 / 59.667 Oral 700 / 940 320 / 320 Output: Urine 950 / 950 Other: Urine Color Yellow Urine Appearance Clear Urine Odor Strong Comment mixed w/ stool, not measured. estimate 50-100cc mixed with stool in commode Stool Size Small Moderate Stool Characteristics Liquid Liquid Brown Data Completed and Pending Pending Labs at Discharge: 05/25/25 05/25/25 05/25/25 15:12 15:37 17:12 WBC 6.01 RBC 4.52 Hgb 13.7 Hct 39.7 MCV 88 MCH 30.3 MCHC 34.5 RDW 13.6 Plt Count MPV Immature Gran % 0.3 Neutrophils % 60.4 Lymphocytes % 29.6 Monocytes % 8.7 Eosinophils % 0.5 Basophils % 0.5 Nucleated RBC % 0.0 Absolute Neutrophils 3.63 Absolute Lymphocytes 1.78 Absolute Monocytes 0.52 Absolute Eosinophils 0.03 Absolute Basophils 0.03 RBC Morphology Normal ESR PT Cancelled 10.5 INR Cancelled 1.0 APTT Cancelled 24.3 Sodium 141 Potassium 3.7 Chloride 108 H Carbon Dioxide 22.9 Anion Gap 10.1 BUN 19 Creatinine 0.64 Est GFR (CKD-EPI 2020) 88.43 Glucose 128 H Calcium 9.8 Magnesium 1.6 Total Bilirubin 1.30 H AST 130 H ALT 59 H Alkaline Phosphatase 79 Troponin I 24 26 C-Reactive Protein NT-Pro-B Natriuret Pep 5468 H Total Protein 7.4 Albumin 4.6 Triglycerides Total Cholesterol LDL Cholesterol, Calc HDL Cholesterol TSH 1.16 Digoxin COVID-19 Source SARS-CoV-2 (PCR) Influenza Type A (PCR) Influenza Type B (PCR) RSV (PCR) 05/25/25 05/25/25 05/26/25 19:22 20:53 06:05 WBC 5.77 RBC 4.01 Hgb 12.2 Hct 35.5 L MCV 89 MCH 30.4 MCHC 34.4 RDW 13.7 Plt Count 189 MPV 10.8 Immature Gran % Neutrophils % Lymphocytes % Monocytes % Eosinophils % Basophils % Nucleated RBC % Absolute Neutrophils Absolute Lymphocytes Absolute Monocytes Absolute Eosinophils Absolute Basophils RBC Morphology ESR PT 9.9 INR 1.0 APTT Sodium 140 Potassium 3.7 Chloride 109 H Carbon Dioxide 23.3 Anion Gap 7.7 BUN 12 Creatinine 0.56 Est GFR (CKD-EPI 2020) 103.17 Glucose 111 H Calcium 8.9 Magnesium 2.2 Total Bilirubin 1.50 H AST 65 H ALT 59 H Alkaline Phosphatase 62 Troponin I 28 C-Reactive Protein NT-Pro-B Natriuret Pep Total Protein 6.0 Albumin 3.8 Triglycerides 85 Total Cholesterol 218 H LDL Cholesterol, Calc 92.7 HDL Cholesterol 108 TSH Digoxin COVID-19 Source Nasopharynx SARS-CoV-2 (PCR) Negative Influenza Type A (PCR) Negative Influenza Type B (PCR) Negative RSV (PCR) Negative 05/26/25 05/27/25 05/27/25 21:32 06:05 06:06 WBC 8.92 RBC 3.88 L Hgb 12.0 Hct 34.3 L MCV 88 MCH 30.9 MCHC 35.0 RDW 13.8 Plt Count 167 MPV 10.7 Immature Gran % Neutrophils % Lymphocytes % Monocytes % Eosinophils % Basophils % Nucleated RBC % Absolute Neutrophils Absolute Lymphocytes Absolute Monocytes Absolute Eosinophils Absolute Basophils RBC Morphology ESR PT 10.2 INR 1.0 APTT Sodium 137 136 Potassium 3.7 3.6 Chloride 106 105 Carbon Dioxide 22.7 23.8 Anion Gap 8.3 7.2 BUN 15 10 Creatinine 0.69 0.58 Est GFR (CKD-EPI 2020) 81.08 99.07 Glucose 163 H 131 H Calcium 8.9 8.5 Magnesium 1.7 Total Bilirubin 2.10 H AST 59 H ALT 68 H Alkaline Phosphatase 62 Troponin I C-Reactive Protein NT-Pro-B Natriuret Pep Total Protein 5.9 Albumin 3.7 Triglycerides Total Cholesterol LDL Cholesterol, Calc HDL Cholesterol TSH Digoxin COVID-19 Source Nasopharynx SARS-CoV-2 (PCR) Negative Influenza Type A (PCR) Negative Influenza Type B (PCR) Negative RSV (PCR) Negative 05/27/25 05/28/25 05/28/25 21:15 05:45 05:45 WBC 7.69 RBC 3.83 L Hgb 11.9 Hct 34.8 L MCV 91 MCH 31.1 MCHC 34.2 RDW 13.6 Plt Count 182 MPV 11.3 H Immature Gran % Neutrophils % Lymphocytes % Monocytes % Eosinophils % Basophils % Nucleated RBC % Absolute Neutrophils Absolute Lymphocytes Absolute Monocytes Absolute Eosinophils Absolute Basophils RBC Morphology ESR 12 PT 10.1 INR 1.0 APTT Sodium 137 139 Potassium 3.7 3.5 Chloride 104 103 Carbon Dioxide 22.3 24.0 Anion Gap 10.7 12 H BUN 20 15 Creatinine 0.73 0.61 Est GFR (CKD-EPI 2020) 75.98 93.47 Glucose 146 H 100 Calcium 8.7 8.3 Magnesium 2.0 Cancelled 2.0 Total Bilirubin 1.30 H AST 62 H ALT 84 H Alkaline Phosphatase 92 Troponin I C-Reactive Protein 13.02 H NT-Pro-B Natriuret Pep 6282 H Total Protein 6.0 Albumin 3.7 Triglycerides Total Cholesterol LDL Cholesterol, Calc HDL Cholesterol TSH Digoxin COVID-19 Source SARS-CoV-2 (PCR) Influenza Type A (PCR) Influenza Type B (PCR) RSV (PCR) 05/29/25 05/29/25 03:36 09:15 WBC 6.40 RBC 3.80 L Hgb 11.8 Hct 33.7 L MCV 89 MCH 31.1 MCHC 35.0 RDW 13.2 Plt Count 186 MPV 10.8 Immature Gran % Neutrophils % Lymphocytes % Monocytes % Eosinophils % Basophils % Nucleated RBC % Absolute Neutrophils Absolute Lymphocytes Absolute Monocytes Absolute Eosinophils Absolute Basophils RBC Morphology ESR PT 10.5 INR 1.0 APTT Sodium 137 Potassium 3.4 L Chloride 103 Carbon Dioxide 21.7 Anion Gap 12.3 H BUN 15 Creatinine 0.61 Est GFR (CKD-EPI 2020) 93.47 Glucose 109 H Calcium 8.2 L Magnesium 1.8 Total Bilirubin 0.80 AST 37 H ALT 67 H Alkaline Phosphatase 95 Troponin I C-Reactive Protein NT-Pro-B Natriuret Pep Total Protein 5.9 Albumin 3.6 Triglycerides Total Cholesterol LDL Cholesterol, Calc HDL Cholesterol TSH Digoxin 3.05 H* 1.27 COVID-19 Source SARS-CoV-2 (PCR) Influenza Type A (PCR) Influenza Type B (PCR) RSV (PCR) PFSH All Active Problems (Updated 05/27/25 @ 17:48 by Ramesh Bernabe MD) Pneumonia due to Streptococcus pneumoniae (Acute) Elevated LFTs (Acute) Chest pain (Acute) Atrial fibrillation with RVR (Acute) Paroxysmal atrial fibrillation with RVR (Acute) Diffuse axonal neuropathy (Acute) Foot drop, left (Acute) Weakness of both hands (Acute) Right foot drop (Acute) Nail dystrophy (Acute) Pain, foot (Acute) Corns and callosities (Acute) Mild sprain of right ankle (Acute) Tibial plateau fracture, right (Acute) Deep vein thrombosis (DVT) of right lower extremity (Acute) Ankle pain, right (Acute) Left knee DJD (Acute) HTN (hypertension) (Chronic) Medical History Nevus Actinic keratosis Seborrheic keratosis Roe angioma Multiple benign nevi Intermittent palpitations Reactive depression (situational) Hyperlipidemia Abnormal cardiovascular stress test Vision changes Sinus tachycardia Caregiver role strain Surgical History No significant past surgical history Family History Father Heart disease Social History Smoking/Tobacco Use Status: Never Smoking risk assessment performed?: Yes Alcohol Intake: current Alcohol Intake frequency: 0-2 drinks per day Alcohol type: wine and other Drug use: Never Substance use type: does not use Household members: none Housing: house Number of Children: 3 number of grandchildren: 5 current occupation: Retired Current gender identity: female What is your relationship status?: Panel score (0-1 are the most socially isolated patients): 1 What type of physical activity do you participate in: walking Seatbelt use: always Do you feel safe at home: Yes Do you feel safe in your relationship?: Yes Additional Social history: with dementia Time Spent with Patient Time Spent with Patient: 45-69 minutes Time was spent: preparing to see the patient(eg.review tests), obtaining and/or reviewing separately otained hiistory, ordering medications,tests, procedures, referring, communicating with other health animal care giver, indepentently interpreting results, counseling the patient and care coordination
--- NOTE | 2025-05-29 16:00 | CMDISCH_ITS ---
Date of service: 05/29/25 Time of Service: 16:00 LACE Index Scoring Tool Questions: Length of Stay (in days): 4 - 6 Was the patient admitted via the E.D.?: Yes E.D. Visits: 1 Answers: Total Score: 8 Risk of Readmission: Low Risk Care Management Discharge Plan Reason for Hospitalization: afib with RVR Discharge Plan: Paulette is being transferred [place] [facility] this afternoon. Her HR has not been able to be stabilized here at [facility]. She will transport via EMS as arranged by the housetrailer servicer. Paulette is aware of transfer, as is her daughter, Lona.
--- NOTE | 2025-05-29 16:00 | PDOC.CMDIS ---
Date of service: 05/29/25 Time of Service: 16:00 LACE Index Scoring Tool Questions: Length of Stay (in days): 4 - 6 Was the patient admitted via the E.D.?: Yes E.D. Visits: 1 Answers: Total Score: 8 Risk of Readmission: Low Risk Care Management Discharge Plan Reason for Hospitalization: afib with RVR Discharge Plan: Paulette is being transferred to [facility] this afternoon. Her HR has not been able to be stabilized here at [facility]. She will transport via EMS as arranged by the warehouse receiving clerk. Paulette is aware of transfer, as is her daughter, Lona.
== END 2025-05-29 15:48 | disposition short-term general hospital (02) | DRG 308 ==
LOC: ER 19:38 → ICU 21:07
PROVIDERS: Admitting Provider Family Medicine; Emergency Provider Emergency Medicine; PCP Family Medicine; Responsible Provider Family Medicine; Visit Provider Family Medicine
DX: I48.0 Paroxysmal atrial fibrillation (principal); E78.2 Mixed hyperlipidemia; J13 Pneumonia due to Streptococcus pneumoniae; J90 Pleural effusion, not elsewhere classified; M85.80 Other specified disorders of bone density and structure, unspecified site; R00.0 Tachycardia, unspecified; R00.2 Palpitations; R07.89 Other chest pain; G62.9 Polyneuropathy, unspecified; M21.372 Foot drop, left foot; R53.1 Weakness; M17.12 Unilateral primary osteoarthritis, left knee; K80.20 Calculus of gallbladder without cholecystitis without obstruction; D18.09 Hemangioma of other sites; R79.89 Other specified abnormal findings of blood chemistry; I11.0 Hypertensive heart disease with heart failure; I50.9 Heart failure, unspecified
CPT/HCPCS: 00123; 36415; 71275; 74177; 80048; 80053; 80061; 85027; 85652; 87637; 93005; 96365; 96366; 96375; 96376; 99291; J1650; 80162; 83735; 83880; 84443; 84484; 85025; 85610; 85730; 86140; 93010; 93306; 99223; 99233; 99239; J0456; J0696; J1160; J1938; J3475; J3480; J3490